=== PATIENT | female | born 1950 | race African-American/Black ===

== ENCOUNTER 2025-04-21 19:38 | Emergency (ER) | payer OTHER ==
[~2025-04-21] VITALS: Ht 162.6 cm; Wt 113.6 kg
[~2025-04-21 19:38] MED LIST: AMLO1TAB23; ATEN50TA80; BENA40TA71; GABA300C; LEVO125T; METF500T
--- NOTE | 2025-04-21 20:30 | ED.PDOC ---
History of Present Illness HPI Comments 75-year-old female with a history of hypertension, diabetes and COPD brought in by EMS for evaluation of elevated blood pressure. EMS reports they visited the patient twice today. The 1st time the patient had called for difficulty breathing. She states she has had difficulty coughing up mucus in her throat, causing her throat discomfort. At that time, EMS found the patient saturating 89% on room air, supplemental oxygen was administered, then the patient was able to clear the mucus and her oxygen saturation returned to normal on room air. Patient declined transport at that time. EMS again visited the patient for complaints of elevated blood pressure. Her blood pressure was found to be 202/104. Patient took her own clonidine, which improved her blood pressure to 164/86. On arrival to the ER now, the patient's blood pressure is 199/111, and she is complaining of a headache, nausea and generalized weakness. She denies any shortness of breath. She is still complaining of the mucus discomfort in her throat, but no sore throat, fever or difficulty swallowing. 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 Allergies: Coded Allergies: Iodine (Verified Allergy, Unknown, 01/31/11) Penicillins (Verified Allergy, Unknown, 01/31/11) Home Meds Reported Medications Atenolol (Tenormin) 50 Mg Tab, DAILY 01/31/11 Levothyroxine Sodium (Synthroid) 125 Mcg Tab 01/31/11 Metformin Hydrochloride (Glucophage) 500 Mg Tab 01/31/11 Benazepril Hcl (Benazepril Hcl) 40 Mg Tab, DAILY 01/31/11 Amlodipine Besylate (Amlodipine Besylate) 10 Mg Tab 01/31/11 Gabapentin (Neurontin) 300 Mg Cap, DAILY 01/31/11 Information Source: Patient Mode of Arrival: Ambulatory Severity: Moderate Timing: Hours Duration: Since onset Prehospital treatment: Accucheck, Oxygen Past Medical History PAST MEDICAL HISTORY: COPD, DM, HTN, Thyroid Surgical History: 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, 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 Family History Family History: Reviewed,noncontributory to illness Social History Smoker: Non-Smoker, Quit Greater Than 1 Year Alcohol: Occasionally Drugs: Denies Drug Use Lives In: Home Constitutional: denies: chills, diaphoresis, fatigue, fever, malaise, sweats, weakness, others EENTM: reports: blurred vision, throat pain; denies: double vision, ear bleeding, ear discharge, ear drainage, ear pain, ear ringing, eye pain, eye redness, hearing loss, mouth pain, mouth swelling, nasal discharge, nose bleeding, nose congestion, nose pain, photophobia, tearing, throat swelling, voice changes, others Respiratory: reports: cough, SOB at rest, shortness of breath; denies: hemoptysis, orthopnea, SOB with excertion, stridor, wheezing, others Cardiovascular: denies: chest pain, dizzy spells, diaphoresis, Dyspnea on exertion, edema, irregular heart beat, left arm pain, lightheadedness, palpitations, PND, syncope, others Gastrointestinal: denies: abdomen distended, abdominal pain, blood streaked bowels, constipated, diarrhea, dysphagia, difficulty swallowing, hematemesis, melena, nausea, poor appetite, poor fluid intake, rectal bleeding, rectal pain, vomiting, others Genitourinary: denies: abnormal vagina bleeding, burning, dyspareunia, dysuria, flank pain, frequency, hematuria, incontinence, pain, , vagina discharge, urgency, others Neurological: reports: dizziness, headache; denies: fainting, left sided numbness, left sided weakness, numbness, paresthesia, pre-existing deficit, right sided numbness, right sided weakness, seizure, speech problems, tingling, tremors, weakness, others Musculoskeletal: denies: back pain, gout, joint pain, joint swelling, muscle pain, muscle stiffness, neck pain, others Integumetry: denies: bruises, change in color, change in hair/nails, dryness, laceration, lesions, lumps, rash, wounds, others Allergic/Immunocompromised: denies: Difficulty Healing, Frequent Infections, Hives, Itching, others Hematologic/Lymphatic: denies: anemia, blood clots, easy bleeding, easy bruising, swollen glands, others Endocrine: denies: excessive hunger, excessive sweating, excessive thirst, excessive urination, flushing, intolerance to cold, intolerance to heat, unexplained weight gain, unexplained weight loss, others Psychiatric: denies: anxiety, bipolar disorder, depression, hopeless, panic disorder, schizophrenia, sleepless, suicidal, others Physical Exam General Appearance: No Apparent Distress, Obese HEENT: Other (Pupils and face symmetric. Moist mucous membranes.) Neck: Full Range of Motion, Normal Inspection Respiratory: Lungs Clear, No Accessory Muscle Use, No Respiratory Distress, Normal Breath Sounds Cardiovascular: No Edema, No JVD, Regular Rate/Rhythm Breast Exam: Deferred Gastrointestinal: Non Tender, Soft Genitalia: Deferred Pelvic: Deferred Rectal: Deferred Extremities: Normal inspection, Normal range of motion, Non-tender, No pedal edema Neurologic: Alert (Oriented x4), Normal Affect, Normal Mood, Other (Ambulatory) Cerebellar Function: NOT DONE Reflexes: NOT DONE Skin: Dry, Normal Color, Warm Lymphatic: NOT DONE Was a procedure done? Was a procedure done?: No Differential Dx Considerations may include: Hypertensive urgency/emergency, CHF, COPD exacerbation, pneumonia, among others X-Ray, Labs, Meds, VS Vital Signs Date Time Temp Pulse Resp B/P (MAP) Pulse Ox O2 Delivery O2 Flow Rate FiO2 04/21/25 22:42 98.2 92 17 159/68 (98) 96 98.2 04/21/25 20:00 97.6 114 16 199/111 (140) 100 97.6 Lab Test 04/21/25 22:56 04/21/25 20:53 04/21/25 20:03 Range/Units Troponin I High Sensitivity 29 33 </=34 ng/L White Blood Count 3.6 L 4.4-10.8 10^3/uL Red Blood Count 4.08 4.0-5.20 10^6/uL Hemoglobin 12.3 12.2-16.2 g/dL Hematocrit 36.6 36.0-46.0 % Mean Corpuscular Volume 89.9 80.0-100.0 fL Mean Corpuscular Hemoglobin 30.2 28.0-32.0 pg Mean Corpuscular Hemoglobin Concent 33.6 32.0-36.0 g/dL Red Cell Distribution Width 14.5 H 11.8-14.3 % Platelet Count 201 140-450 10^3/uL Mean Platelet Volume 7.8 6.9-10.8 fL Neutrophils (%) (Auto) 73.9 37.0-80.0 % Lymphocytes (%) (Auto) 15.5 10.0-50.0 % Monocytes (%) (Auto) 8.8 0.0-12.0 % Eosinophils (%) (Auto) 1.3 0.0-7.0 % Basophils (%) (Auto) 0.5 0.0-2.0 % Neutrophils # (Auto) 2.6 1.6-8.6 10 ^3/uL Lymphocytes # (Auto) 0.6 0.4-5.4 10 ^3/uL Monocytes # (Auto) 0.3 0-1.3 10 ^3/uL Eosinophils # (Auto) 0 0-0.8 10 ^3/uL Basophils # (Auto) 0 0-0.2 10 ^3/uL Nucleated Red Blood Cells 0.2 % Sodium Level 144 136-145 mmol/L Potassium Level 3.6 3.5-5.1 mmol/L Chloride Level 108 H 98-107 mmol/L Carbon Dioxide Level 25 20-31 mmol/L Anion Gap 11 5-15 Blood Urea Nitrogen 26 H 9-23 mg/dL Creatinine 0.86 0.550-1.02 mg/dL Glomerular Filtration Rate Calc 70 >90 mL/min BUN/Creatinine Ratio 30.2 H 10.0-20.0 Serum Glucose 143 H 74-106 mg/dL Calcium Level 9.9 8.7-10.4 mg/dL B-Type Natriuretic Peptide 82.39 0-100 pg/mL POC Glucose 141 H 70-106 mg/dl CHEST RADIOGRAPH Indication: sob Technique: Single frontal view of the chest was obtained COMPARISON: None FINDINGS: Lines and Tubes: None Lungs: Clear Pleura: No effusion. No pneumothorax. Cardiomediastinal contours: Cardiomegaly. Bones: Unremarkable IMPRESSION: 1. Cardiomegaly. X-Ray, Labs, Meds, VS Comment 75-year-old female with a history of hypertension, diabetes, COPD and thyroid disease brought in by EMS for evaluation of throat discomfort due to mucous, and elevated blood pressure Initial vitals remarkable for heart rate 114, blood pressure 199/111 . Oxygen saturation is 99-100% on room air Exam unremarkable Rhythm strip independently interpreted by me: Sinus rhythm, rate ninety-two, no ectopy. Chest x-ray: Cardiomegaly CBC remarkable for WBC 3.6, basic metabolic panel remarkable for chloride 108, BUN 26, glucose 143, 2 serial troponins negative, BNP normal Patient treated with the following in the ED: Guaifenesin 200 mg p.o., hydralazine 10 mg IV, decadron 10mg IV On re-evaluation, blood pressure is 159/68, patient is not in respiratory distress and saturating 97% on room air. She states she feels better and is comfortable being discharged home. Patient appears stable for discharge with close outpatient follow-up with her primary physician. Rx guaifenesin Time of 1ST Reevaluation: 20:22 Reevaluation 1ST: Unchanged Time of 2ND Reevaluation: 23:56 Reevaluation 2ND: Improved Patient Education/Counseling: Diagnosis, Treatment Family Education/Counseling: No Family Present SEPSIS Sepsis Screen Physician Orders Chest Portable (04/21/25 20:20) Urinalysis (04/21/25 20:20) Electrocardigram (04/21/25 20:20) Vital Signs Date Time Temp Pulse Resp B/P (MAP) Pulse Ox O2 Delivery O2 Flow Rate FiO2 04/21/25 22:42 98.2 92 17 159/68 (98) 96 98.2 04/21/25 20:00 97.6 114 16 199/111 (140) 100 97.6 Laboratory Tests Test 04/21/25 20:53 White Blood Count 3.6 10^3/uL (4.4-10.8) L Departure 1 Departure Time of Disposition: 23:45 Impression: Primary Impression: Accelerated hypertension Additional Impression: COPD exacerbation Disposition: 01 HOME / SELF CARE / HOMELESS Condition: Stable Additional Instructions: Your blood tests were unremarkable. Your chest x-ray was unremarkable. I have prescribed medication to help you cough up the mucus. Continue your current medications as prescribed. Follow-up with your primary doctor in 1-2 days. e-Prescriptions Guaifenesin (Mucinex) 600 Mg Tab 1 TAB PO BID PRN, #14 TAB Prov: ALEXY LOZANO MD 04/21/25 Discharged With: Relative Critical Care Note Critical Care Time?: No Stability Stability form required: No Heart Score Heart Score: Heart Score Response (Comments) Value History N/A 0 EKG N/A 0 Age N/A 0 Risk Factors N/A 0 Troponin N/A 0 Total 0 I personally scribed for ALEXY LOZANO MD ([email or web address]) on 04/21/25 at 20:30. Electronically submitted by Shady Felder ([facility]). I personally scribed for ALEXY LOZANO MD ([email or web address]) on 04/21/25 at 21:32. Electronically submitted by Shady Felder ([facility]). ALEXY LOZANO MD Apr 21, 2025 20:30
[2025-04-21 21:13] LABS: Hematocrit 36.6 % (36.0-46.0); Hemoglobin 12.3 g/dL (12.2-16.2); Mean Corpuscular Hemoglobin 30.2 pg (28.0-32.0); Mean Corpuscular Volume 89.9 fL (80.0-100.0); Nucleated Red Blood Cells % 0.2 %
--- NOTE | 2025-04-21 21:17 | DVH ---
CHEST RADIOGRAPH Indication: sob Technique: Single frontal view of the chest was obtained COMPARISON: None FINDINGS: Lines and Tubes: None Lungs: Clear Pleura: No effusion. No pneumothorax. Cardiomediastinal contours: Cardiomegaly. Bones: Unremarkable IMPRESSION: 1. Cardiomegaly.
[2025-04-21 21:19] LABS: Potassium 3.6 mmol/L (3.5-5.1); Sodium 144 mmol/L (136-145)
[2025-04-21 21:20] LABS: Anion Gap 11 (5-15); Calcium 9.9 mg/dL (8.7-10.4); Carbon Dioxide 25 mmol/L (20-31)
[2025-04-21 21:25] LABS: BUN/Creatinine Ratio 30.2 (10.0-20.0)
[2025-04-21 21:26] LABS: Blood Urea Nitrogen 26 mg/dL (9-23); Chloride 108 mmol/L (98-107); Glucose 143 mg/dL (74-106)
[2025-04-21] MEDS ORDERED: GUAI600T78 PO (23:58)
[2025-04-22] MEDS: hydrALAZINE HCL 20 MG/ML VL IV ONE (04:59)
[2025-04-22 05:00] VITALS: BP 165/93; PULSE 59; RESP 18; TEMP 98.8; O2SAT 97
== END 2025-04-22 05:00 | disposition home or self-care (01) ==
LOC: EDBD 19:38 → ER 19:38
DX: I10 Essential (primary) hypertension (principal); J44.1 Chronic obstructive pulmonary disease with (acute) exacerbation; E11.9 Type 2 diabetes mellitus without complications; Z79.899 Other long term (current) drug therapy; Z90.49 Acquired absence of other specified parts of digestive tract; Z98.890 Other specified postprocedural states; Z88.0 Allergy status to penicillin; Z88.8 Allergy status to other drugs, medicaments and biological substances
CPT/HCPCS: 36415; 71045; 80048; 82947; 83880; 84484; 85025; 96374; 99284; J1100; 82962

== ENCOUNTER 2025-05-12 08:06 | Emergency (ER) | payer OTHER ==
[~2025-05-12] VITALS: Ht 162.6 cm; Wt 111.7 kg
[~2025-05-12 08:06] MED LIST changes: +GUAI600T78 PO
--- NOTE | 2025-05-12 08:46 | ED.PDOC ---
SOB-HPI HPI Comments This is a 75 year old female presenting to the ED with chief complaint of SOB. Patient reports that she has been experiencing SOB with productive cough since 3am this morning. Patient relays that she has felt general malaise for the past 5 days. Patient noted to be 95% on RA. Patient denies any N/V, fever, chills, chest pain, or headache. 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 Family History Family History: Reviewed,noncontributory to illness Social History Smoker: Non-Smoker, Quit Greater Than 1 Year Alcohol: Occasionally Drugs: Denies Drug Use Lives In: Home Constitutional: reports: malaise; denies: chills, diaphoresis, fatigue, fever, sweats, weakness, others EENTM: denies: blurred vision, double vision, ear bleeding, ear discharge, ear drainage, ear pain, ear ringing, eye pain, eye redness, hearing loss, mouth pain, mouth swelling, nasal discharge, nose bleeding, nose congestion, nose pain, photophobia, tearing, throat pain, throat swelling, voice changes, others Respiratory: reports: cough, shortness of breath; denies: hemoptysis, orthopnea, SOB at rest, SOB with excertion, stridor, wheezing, others Cardiovascular: denies: chest pain, dizzy spells, diaphoresis, Dyspnea on exertion, edema, irregular heart beat, left arm pain, lightheadedness, palpitations, PND, syncope, others Gastrointestinal: denies: abdomen distended, abdominal pain, blood streaked bowels, constipated, diarrhea, dysphagia, difficulty swallowing, hematemesis, melena, nausea, poor appetite, poor fluid intake, rectal bleeding, rectal pain, vomiting, others Genitourinary: denies: abnormal vagina bleeding, burning, dyspareunia, dysuria, flank pain, frequency, hematuria, incontinence, pain, , vagina discharge, urgency, others Neurological: denies: dizziness, fainting, headache, left sided numbness, left sided weakness, numbness, paresthesia, pre-existing deficit, right sided numbness, right sided weakness, seizure, speech problems, tingling, tremors, weakness, others Musculoskeletal: denies: back pain, gout, joint pain, joint swelling, muscle pain, muscle stiffness, neck pain, others Integumetry: denies: bruises, change in color, change in hair/nails, dryness, laceration, lesions, lumps, rash, wounds, others Allergic/Immunocompromised: denies: Difficulty Healing, Frequent Infections, Hives, Itching, others Hematologic/Lymphatic: denies: anemia, blood clots, easy bleeding, easy bruising, swollen glands, others Endocrine: denies: excessive hunger, excessive sweating, excessive thirst, excessive urination, flushing, intolerance to cold, intolerance to heat, unexplained weight gain, unexplained weight loss, others Psychiatric: denies: anxiety, bipolar disorder, depression, hopeless, panic disorder, schizophrenia, sleepless, suicidal, others All Other Systems: Reviewed and Negative Physical Exam General Appearance: Moderate Distress, Normal HEENT: Normal ENT Inspection, Pharynx Normal, TMs Normal Neck: Full Range of Motion, Non-Tender, Normal, Normal Inspection Respiratory: Chest Non-Tender, Lungs Clear, No Accessory Muscle Use, No Respiratory Distress, Normal Breath Sounds Cardiovascular: No Edema, No JVD, No Murmur, No Gallop, Normal Peripheral Pulses, Regular Rate/Rhythm Breast Exam: Deferred Gastrointestinal: No Organomegaly, Non Tender, No Pulsatile Mass, Normal Bowel Sounds, Soft Genitalia: Deferred Pelvic: Deferred Rectal: Deferred Extremities: No calf tenderness, Normal capillary refill, Normal range of motion, Non-tender, Pedal edema Musculoskeletal : Apperance: Normal 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 Was a procedure done?: No Differential Dx Differential Diagnosis: Anxiety, Asthma, Bronchitis, CHF, COPD, Pneumonia, URI X-Ray, Labs, Meds, VS Vital Signs Date Time Temp Pulse Resp B/P (MAP) Pulse Ox O2 Delivery O2 Flow Rate FiO2 05/12/25 11:07 144/60 05/12/25 10:14 58 24 93 Room Air 05/12/25 10:14 98.2 58 24 144/60 (88) 93 98.2 05/12/25 08:25 62 05/12/25 08:07 98.4 67 20 184/87 95 98.4 Lab Test 05/12/25 08:47 Range/Units White Blood Count 3.0 L 4.4-10.8 10^3/uL Red Blood Count 4.04 4.0-5.20 10^6/uL Hemoglobin 12.2 12.2-16.2 g/dL Hematocrit 36.1 36.0-46.0 % Mean Corpuscular Volume 89.4 80.0-100.0 fL Mean Corpuscular Hemoglobin 30.3 28.0-32.0 pg Mean Corpuscular Hemoglobin Concent 33.9 32.0-36.0 g/dL Red Cell Distribution Width 14.3 11.8-14.3 % Platelet Count 190 140-450 10^3/uL Mean Platelet Volume 8.4 6.9-10.8 fL Neutrophils (%) (Auto) 63.2 37.0-80.0 % Lymphocytes (%) (Auto) 21.4 10.0-50.0 % Monocytes (%) (Auto) 11.8 0.0-12.0 % Eosinophils (%) (Auto) 3.0 0.0-7.0 % Basophils (%) (Auto) 0.6 0.0-2.0 % Neutrophils # (Auto) 1.9 1.6-8.6 10 ^3/uL Lymphocytes # (Auto) 0.6 0.4-5.4 10 ^3/uL Monocytes # (Auto) 0.4 0-1.3 10 ^3/uL Eosinophils # (Auto) 0.1 0-0.8 10 ^3/uL Basophils # (Auto) 0 0-0.2 10 ^3/uL Nucleated Red Blood Cells 0.0 % Sodium Level 140 136-145 mmol/L Potassium Level 3.7 3.5-5.1 mmol/L Chloride Level 101 98-107 mmol/L Carbon Dioxide Level 29 20-31 mmol/L Anion Gap 10 5-15 Blood Urea Nitrogen 18 9-23 mg/dL Creatinine 0.85 0.550-1.02 mg/dL Glomerular Filtration Rate Calc 71 >90 mL/min BUN/Creatinine Ratio 21.2 H 10.0-20.0 Serum Glucose 155 H 74-106 mg/dL Calcium Level 11.0 H 8.7-10.4 mg/dL Current Medications Medications (Trade) Dose Ordered Sig/Nancy Route Start Time Stop Time Status Last Admin Furosemide (Lasix Tablet) 10 mg ONCE ONCE PO 05/12/25 11:00 05/12/25 11:01 DC 05/12/25 11:07 Patient alert. Complaining of shortness a breath. No acute process. Vitals stable. Saturation above 95%. Possible CHF. Heart rate within normal limits. No increased respiratory rate. Was given Lasix. Chest x-ray reviewed does show CHF. Explained to the patient. Spoke with [facility] physician. Was told to follow up with her primary care physician. Was told to come back if there is any problem. Time of 1ST Reevaluation: 09:45 Reevaluation 1ST: Improved Patient Education/Counseling: Diagnosis, Treatment Family Education/Counseling: No Family Present SEPSIS Sepsis Screen Date sepsis recognized/suspect: May 12, 2025 Time Sepsis recognized/suspect: 806 Recent Procedure: No On Antibiotic Therapy: No Respiratory Rate >20: No Heart Rate >90: No Temp<36 C (96.8 F) or >38.3 C: No SBP <90 or MAP <65 mmHG: No New Acute Mental Status Change: No Is the patient on CPAP, BIPAP,: No Physician Orders Chest Portable (05/12/25 08:37) Urinalysis (05/12/25 08:37) Vital Signs Date Time Temp Pulse Resp B/P (MAP) Pulse Ox O2 Delivery O2 Flow Rate FiO2 05/12/25 11:07 144/60 05/12/25 10:14 58 24 93 Room Air 05/12/25 10:14 98.2 58 24 144/60 (88) 93 98.2 05/12/25 08:25 62 05/12/25 08:07 98.4 67 20 184/87 95 98.4 Laboratory Tests Test 05/12/25 08:47 White Blood Count 3.0 10^3/uL (4.4-10.8) L Medications Medications Dose Ordered Sig/Nancy Route Start Time Stop Time Status Last Admin Dose Admin Furosemide 10 mg ONCE ONCE PO 05/12/25 11:00 05/12/25 11:01 DC 05/12/25 11:07 Departure 1 Departure Time of Disposition: 10:50 Impression: Primary Impression: CHF (congestive heart failure) Qualified Codes: I50.43 - Acute on chronic combined systolic (congestive) and diastolic (congestive) heart failure Additional Impression: Pneumonitis Disposition: HOME / SELF CARE / HOMELESS Condition: Good e-Prescriptions Levofloxacin Hemihydrate (LEVOFLOXACIN) 500 Mg Tab 1 TAB PO DAILY for 7 Days, #7 TAB Prov: TOMMY WU MD 05/12/25 Discharged With: Self Critical Care Note Critical Care Time?: No Stability Stability form required: No Heart Score Heart Score: Heart Score Response (Comments) Value History Moderate Suspicious 1 EKG Normal 0 Age >65 2 Risk Factors >3 or Hx ASHD 2 Troponin N/A 0 Total 5 I personally scribed for TOMMY WU MD ([email or web address]) on 05/12/25 at 08:46. Electronically submitted by Hussein Chan ([email or web address]). TOMMY WU MD May 12, 2025 08:46
[2025-05-12 09:07] LABS: Hematocrit 36.1 % (36.0-46.0); Hemoglobin 12.2 g/dL (12.2-16.2); Mean Corpuscular Hemoglobin 30.3 pg (28.0-32.0); Mean Corpuscular Volume 89.4 fL (80.0-100.0); Nucleated Red Blood Cells % 0.0 %
[2025-05-12 09:20] LABS: Chloride 101 mmol/L (98-107); Potassium 3.7 mmol/L (3.5-5.1); Sodium 140 mmol/L (136-145)
[2025-05-12 09:21] LABS: Anion Gap 10 (5-15); Calcium 11.0 mg/dL (8.7-10.4); Carbon Dioxide 29 mmol/L (20-31)
[2025-05-12 09:26] LABS: BUN/Creatinine Ratio 21.2 (10.0-20.0); Blood Urea Nitrogen 18 mg/dL (9-23)
[2025-05-12 09:28] LABS: Glucose 155 mg/dL (74-106)
--- NOTE | 2025-05-12 09:35 | DVH ---
INDICATION: sob TECHNIQUE: Frontal view of the chest. COMPARISON: XY CHEST PORTABLE on DOS: 04/21/25 FINDINGS: Cardiomegaly. The heart and mediastinal contours are grossly unremarkable. There is no evidence of p leural disease. The lungs are clear. The bony structures of the chest are intact without fracture. IMPRESSION: 1. Cardiomegaly with mild CHF
[2025-05-12 10:14] VITALS: BP 144/60; PULSE 58; RESP 24; TEMP 98.2; O2SAT 93
[2025-05-12] MEDS: FUROSEMIDE 20 MG TAB PO ONE (11:07)
--- NOTE | 2025-05-12 11:30 | DVHDS2 ---
New Physician D'charge PN Admitting Diagnosis Admitting Diagnosis sob Discharge Diagnosis copd mild chf Operations or Procedures none Reason(s) For Hospitalization Surgery Hospital Course 75 F who comes to ER with SOB over last few days. She has a hx of COPD. When she arrived her o2 sats were >95 on room air and her vitals signs were stable with no tachycardia or fever. She denied n/v, fever or chills. Her labs showed WBC 3k and chemistry panel was nml. Her CXR was read as mild CHF however the patient had no peripheral edema and as mentioned sats were >95% on room air. SHe was given small dose of 10 mg PO Lasix x1 and will be discharged home with levaquin 500 mg po qd x 7 days for possible URI and will have outpt PCP and cardio follow up via [facility]. Discussed with ER provider and all parties in agreement with plan. Herita to arrange for all outpt follow up and patient to be dc home from ER. Treatment Plan Discharge Condition of Discharge Good Disposition Home Discharge Instructions Diet: Cardiac 2g Na,low cholest Activity: No Restrictions, As Tolerated Medications: see med sheet Follow Up Care Follow Up/Referral: pcp cardio Discharge Statement: "Patient was advised to return to the ER or call 911 if any headaches, dizziness, shortness of breath, chest pain, abdominal pain, bleeding, fevers, or worsening of medical condition. Patient was counseled about treatment plan, medications, possible side effects, patientverbalized understanding. All questions were answered to the best of my ability. This discharge took greater then 30 minutes in planning, reviewing documentation, counseling the patient, and discussing with other team members." BELINDA ZAPATA MD May 12, 2025 11:30
[2025-05-12] MEDS ORDERED: LEVO500T91 PO (11:58)
== END 2025-05-12 12:19 | disposition home or self-care (01) ==
LOC: ER 08:06
DX: I11.0 Hypertensive heart disease with heart failure (principal); I50.9 Heart failure, unspecified; J98.4 Other disorders of lung; F10.90 Alcohol use, unspecified, uncomplicated; Y90.9 Presence of alcohol in blood, level not specified; E11.9 Type 2 diabetes mellitus without complications; J44.9 Chronic obstructive pulmonary disease, unspecified; Z79.899 Other long term (current) drug therapy; Z90.49 Acquired absence of other specified parts of digestive tract; Z98.890 Other specified postprocedural states
CPT/HCPCS: 36415; 71045; 80048; 85025

== ENCOUNTER 2025-05-12 14:16 | Emergency (ER) | payer OTHER ==
[~2025-05-12] VITALS: Ht 162.6 cm; Wt 111.7 kg
[~2025-05-12 14:16] MED LIST changes: +LEVO500T91 PO
--- NOTE | 2025-05-12 14:46 | ED.PDOC ---
HPI Comments This is a 75 year old female presenting to the ED with chief complaint of hypertension. Patient reports that despite being discharged from the ED earlier today, her blood pressure has continued to be elevated with a systolic in the 200s. Patient denies any confusion, chest pain, SOB, dizziness, N/V/D, fever, or chills. Chief Complaint: High Blood Pressure Time Seen by MD: 14:46 Primary Care Provider: NONE Reviewed Notes: Nurses Notes, Medications, Allergies Allergies: Coded Allergies: Iodine (Verified Allergy, Unknown, 01/31/11) Penicillins (Verified Allergy, Unknown, 01/31/11) Home Meds Active Scripts Levofloxacin Hemihydrate (LEVOFLOXACIN) 500 Mg Tab, 1 TAB PO DAILY for 7 Days, #7 TAB Prov:TOMMY WU MD 05/12/25 Guaifenesin (Mucinex) 600 Mg Tab, 1 TAB PO BID PRN, #14 TAB Prov:ALEXY LOZANO MD 04/21/25 Reported Medications Atenolol (Tenormin) 50 Mg Tab, DAILY 01/31/11 Levothyroxine Sodium (Synthroid) 125 Mcg Tab 01/31/11 Metformin Hydrochloride (Glucophage) 500 Mg Tab 01/31/11 Benazepril Hcl (Benazepril Hcl) 40 Mg Tab, DAILY 01/31/11 Amlodipine Besylate (Amlodipine Besylate) 10 Mg Tab 01/31/11 Gabapentin (Neurontin) 300 Mg Cap, DAILY 01/31/11 Information Source: Patient Mode of Arrival: Wheelchair Severity: Moderate Timing: Hours Duration: Since onset Prehospital treatment: None Cardiac Risk Factors: HTN, Diabetes PE Risk Factors: None Past Medical History PAST MEDICAL HISTORY: COPD, DM, HTN, Thyroid Surgical History: 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, 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 Family History Family History: Reviewed,noncontributory to illness Social History Smoker: Non-Smoker, Quit Greater Than 1 Year Alcohol: Occasionally Drugs: Denies Drug Use Lives In: Home Constitutional: denies: chills, diaphoresis, fatigue, fever, malaise, sweats, weakness, others EENTM: denies: blurred vision, double vision, ear bleeding, ear discharge, ear drainage, ear pain, ear ringing, eye pain, eye redness, hearing loss, mouth pain, mouth swelling, nasal discharge, nose bleeding, nose congestion, nose pain, photophobia, tearing, throat pain, throat swelling, voice changes, others Respiratory: denies: cough, hemoptysis, orthopnea, SOB at rest, shortness of breath, SOB with excertion, stridor, wheezing, others Cardiovascular: denies: chest pain, dizzy spells, diaphoresis, Dyspnea on exertion, edema, irregular heart beat, left arm pain, lightheadedness, palpitat ions, PND, syncope, others Gastrointestinal: denies: abdomen distended, abdominal pain, blood streaked bow els, constipated, diarrhea, dysphagia, difficulty swallowing, hematemesis, melena, nausea, poor appetite, poor fluid intake, rectal bleeding, rectal pain, vomiting, others Genitourinary: denies: abnormal vagina bleeding, burning, dyspareunia, dysuria, flank pain, frequency, hematuria, incontinence, pain, , vagina discharge, urgency, others Neurological: denies: dizziness, fainting, headache, left sided numbness, left sided weakness, numbness, paresthesia, pre-existing deficit, right sided numbness, right sided weakness, seizure, speech problems, tingling, tremors, weakness, others Musculoskeletal: denies: back pain, gout, joint pain, joint swelling, muscle pain, muscle stiffness, neck pain, others Integumetry: denies: bruises, change in color, change in hair/nails, dryness, laceration, lesions, lumps, rash, wounds, others Allergic/Immunocompromised: denies: Difficulty Healing, Frequent Infections, Hives, Itching, others Hematologic/Lymphatic: denies: anemia, blood clots, easy bleeding, easy bruisi ng, swollen glands, others Endocrine: denies: excessive hunger, excessive sweating, excessive thirst, exce ssive urination, flushing, intolerance to cold, intolerance to heat, unexplained weight gain, unexplained weight loss, others Psychiatric: denies: anxiety, bipolar disorder, depression, hopeless, panic disorder, schizophrenia, sleepless, suicidal, others All Other Systems: Reviewed and Negative Physical Exam General Appearance: Moderate Distress, Normal HEENT: Normal ENT Inspection, Pharynx Normal, TMs Normal Neck: Full Range of Motion, Non-Tender, Normal, Normal Inspection Respiratory: Chest Non-Tender, Lungs Clear, No Accessory Muscle Use, No Respiratory Distress, Normal Breath Sounds Cardiovascular: No Edema, No JVD, No Murmur, No Gallop, Normal Peripheral Pulses, Regular Rate/Rhythm Breast Exam: Deferred Gastrointestinal: No Organomegaly, Non Tender, No Pulsatile Mass, Normal Bowel Sounds, Soft Genitalia: Deferred Pelvic: Deferred Rectal: Deferred Extremities: No calf tenderness, Normal capillary refill, Normal inspection, Normal range of motion, Non-tender, No pedal edema Musculoskeletal : Apperance: Normal Neurologic: Alert, chip mucker II-XII nml as Tested, No Motor Deficits, Normal Affect, Normal Mood, No Sensory Deficits Cerebellar Function: Normal Reflexes: Normal Skin: Dry, Normal Color, Warm Peripheral Pulses: 3+ Radial (R), 3+ Radial (L) Lymphatic: No Adenopathy Was a procedure done? Was a procedure done?: No CP Differential Dx Differential Diagnosis: A-fib, A-Flutter, Angina, Anxiety / Panic Attack, Atrial Dysrhythmia, Electrolyte Disorder X-Ray, Labs, Meds, VS Vital Signs Date Time Temp Pulse Resp B/P (MAP) Pulse Ox O2 Delivery O2 Flow Rate FiO2 05/12/25 16:40 235/103 05/12/25 16:30 72 16 235/103 (147) 97 05/12/25 16:30 72 16 97 Room Air* 0 21 05/12/25 14:21 98.0 71 17 233/93 95 98.0 Current Medications Medications (Trade) Dose Ordered Sig/Nancy Route Start Time Stop Time Status Last Admin Amlodipine Besylate (Norvasc Tablet) 10 mg ONCE ONCE PO 05/12/25 14:45 05/12/25 14:46 DC 05/12/25 16:40 Patient alert. Came in because of abdominal discomfort. Just left the hospital few hours ago. Vitals stable. Blood pressure slightly elevated. Norvasc. Abdomen is soft nontender. CT scan was done few hours ago did not show any acute process other than old changes. Explained to the patient. Continue monitoring. Time of 1ST Reevaluation: 15:45 Reevaluation 1ST: Improved Patient Education/Counseling: Diagnosis, Treatment Family Education/Counseling: No Family Present SEPSIS Sepsis Screen Date sepsis recognized/suspect: May 12, 2025 Time Sepsis recognized/suspect: 142 Recent Procedure: No On Antibiotic Therapy: No Respiratory Rate >20: No Heart Rate >90: No Temp<36 C (96.8 F) or >38.3 C: No SBP <90 or MAP <65 mmHG: No New Acute Mental Status Change: No Is the patient on CPAP, BIPAP,: No Vital Signs Date Time Temp Pulse Resp B/P (MAP) Pulse Ox O2 Delivery O2 Flow Rate FiO2 05/12/25 16:40 235/103 05/12/25 16:30 72 16 235/103 (147) 97 05/12/25 16:30 72 16 97 Room Air* 0 21 05/12/25 14:21 98.0 71 17 233/93 95 98.0 Medications Medications Dose Ordered Sig/Nancy Route Start Time Stop Time Status Last Admin Dose Admin Amlodipine Besylate 10 mg ONCE ONCE PO 05/12/25 14:45 05/12/25 14:46 DC 05/12/25 16:40 Departure 1 Departure Time of Disposition: 17:51 Impression: Primary Impression: Hypertensive urgency Disposition: 07 LEFT AWOL/ELOPED Condition: Good Discharged With: Self Critical Care Note Critical Care Time?: No Stability Stability form required: No Heart Score Heart Score: Heart Score Response (Comments) Value History Moderate Suspicious 1 EKG Normal 0 Age >65 2 Risk Factors >3 or Hx ASHD 2 Troponin N/A 0 Total 5 I personally scribed for TOMMY WU MD ([email or web address]) on 05/12/25 at 14:46. Electronically submitted by Hussein Chan ([email or web address]). TOMMY WU MD May 12, 2025 14:46
[2025-05-12 16:30] VITALS: PULSE 72; RESP 16; O2SAT 97
[2025-05-12 18:36] VITALS: PULSE 72; RESP 16; RESP 18; O2SAT 94; O2SAT 97
[2025-05-12 19:30] VITALS: PULSE 67; RESP 20; O2SAT 97
[2025-05-12] MEDS: hydrALAZINE HCL 20 MG/ML VL IV ONE (19:59)
[2025-05-13 07:59] VITALS: BP 189/83; PULSE 79; RESP 12; TEMP 98; O2SAT 95
== END 2025-05-13 08:10 | disposition home or self-care (01) ==
LOC: ER 14:16
DX: I16.0 Hypertensive urgency (principal); E11.9 Type 2 diabetes mellitus without complications; J44.9 Chronic obstructive pulmonary disease, unspecified; Z79.899 Other long term (current) drug therapy; Z90.49 Acquired absence of other specified parts of digestive tract; Z98.890 Other specified postprocedural states; Z88.0 Allergy status to penicillin; Z88.8 Allergy status to other drugs, medicaments and biological substances
CPT/HCPCS: 96374; 99285; J0360

== ENCOUNTER 2025-05-15 23:54 | Inpatient (IN) | payer OTHER ==
[~2025-05-15] VITALS: Ht 165.1 cm; Wt 104.5 kg
--- NOTE | 2025-05-16 01:25 | DVH ---
Exam: CT CT AB PEL WO CON-NO ORAL OR IV History: Abdominal pain, No BM x 6 days Comparison Study: None Technique: Multidetector spiral CT of the abdomen was performed from lung bases to pubic symphysis. I maging was performed without IV contrast. Axial, coronal and sagittal multiplanar reformats were obta ined from the axial data set by the technologist. Radiation Dose : 1. Abdomen/Pelvis: CTDIvol 19.01 mGy, DLP 990.07 mGy*cm. Findings: Evaluation of solid organs is limited due to lack of intravenous contrast use. Lung Bases: Mild cardiomegaly and small pericardial effusion. Multivessel coronary atherosclerosis. No acute finding of the lung bases, with mild tzirn-mqhmhfe-mesy-left scarring/atelectasis. Liver: Unremarkable. Gallbladder and Biliary Tree: Unremarkable Pancreas: Mild atrophy. Spleen: Unremarkable Adrenal Glands: Bilateral thickening with suspected small lipid rich left adrenal adenoma. Kidneys/Ureters: No urinary stone or obstruction. Bladder: Contracted without evident abnormality. Pelvic Organs: Uterine calcifications consistent with involuted fibroids. Bowel: No wall thickening or obstruction. No significant stool burden. No evidence of appendicitis. Vasculature: Mild atherosclerosis. Lymphadenopathy: No obvious adenopathy. Peritoneum: Trace ascites adjacent to the cecum. No free air or fluid collection. Abdominal Wall: Umbilical rectus diastasis. Musculoskeletal: No acute osseous finding. Degenerative changes of the spine and pelvis. IMPRESSION: 1. No evidence of bowel obstruction or significant stool burden. 2. Small volume right lower quadrant ascites of indeterminate origin. 3. Cardiomegaly with small pericardial effusion. Radiation optimization: All CT scans at this facility use at least one of these dose optimization anu hniques: automated exposure control mA and/or kV adjustment per patient size (includes targeted exam s where dose is matched to clinical indication) or iterative reconstruction.
[2025-05-16 01:26] LABS: Hematocrit 41.5 % (36.0-46.0); Hemoglobin 14.0 g/dL (12.2-16.2); Mean Corpuscular Hemoglobin 31.0 pg (28.0-32.0); Mean Corpuscular Volume 91.6 fL (80.0-100.0); Nucleated Red Blood Cells % 0.1 %
[2025-05-16 01:36] LABS: Chloride 105 mmol/L (98-107); Sodium 144 mmol/L (136-145)
[2025-05-16 01:37] LABS: Anion Gap 12 (5-15); Calcium 9.7 mg/dL (8.7-10.4); Carbon Dioxide 27 mmol/L (20-31)
[2025-05-16 01:40] LABS: Potassium 3.3 mmol/L (3.5-5.1)
[2025-05-16 01:42] LABS: BUN/Creatinine Ratio 16.1 (10.0-20.0)
[2025-05-16 01:46] LABS: Blood Urea Nitrogen 23 mg/dL (9-23); Glucose 146 mg/dL (74-106)
--- NOTE | 2025-05-16 02:44 | ED.PDOC ---
History of Present Illness HPI Comments 75-year-old female who is brought in by son for chief complaint of constipation, nausea, abdominal pain, shortness of breath, and congestion. One-week endorsement of symptoms. 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 Cyanosis or reports on pat ient becoming confused and declining inability to care for herself. Denies any chest pain, vomiting, or further associated symptoms. REVIEW OF SYSTEMS: General: Congestion, No fever, no chills, HEENT: No neck pain, no blurred vision Cardiac: No chest pain. No palpitations. Lungs: Shortness of breath GI: Abdominal pain, nausea, constipation, no vomiting Musculoskeletal: No joint pain , no back pain Skin: No rash, no wound Neuro: No headache, no dizziness, no syncope PHYSICAL EXAM: General: Awake, alert and oriented. No acute distress. Skin: Skin in warm, dry and intact without rashes or lesions. HEENT: The head is normocephalic and atraumatic. Conjunctivae are clear without exudates or hemorrhage. Sclera is non-icteric. Neck: Normal range of motion. No JVD. Cardiac: Regular rate Respiratory: No signs of respiratory distress. No Stridor. No rales or wheezing on exam. Extremities: Non Pitting B/L pedal edema. No pitting edema. Neurological: The patient is awake, alert and oriented to person, place, and time with normal speech. Speech is clear. There is no facial asymmetry. Psychiatric: Appropriate mood and affect. Good judgement and insight. Chief Complaint: Abdominal Pain Time Seen by MD: 00:29 Primary Care Provider: NONE Reviewed Notes: Nurses Notes, Medications, Allergies Allergies: Coded Allergies: Iodine (Verified Allergy, Unknown, 01/31/11) Penicillins (Verified Allergy, Unknown, 01/31/11) Home Meds Active Scripts Lactulose (Lactulose) 10 Gm/15 Ml Laura, 10 GM PO BID PRN for 30 Days, #120 ML Prov:BELINDA ZAPATA MD 05/16/25 Levofloxacin Hemihydrate (LEVAQUIN 500 MG) 500 Mg Tab, 1 TAB PO DAILY, #7 TAB Prov:BELINDA ZAPATA MD 05/16/25 Levofloxacin Hemihydrate (LEVOFLOXACIN) 500 Mg Tab, 1 TAB PO DAILY for 7 Days, #7 TAB Prov:BRYCE,TOMMY MD 05/12/25 Guaifenesin (Mucinex) 600 Mg Tab, 1 TAB PO BID PRN, #14 TAB Prov:ALEXY LOZANO MD 04/21/25 Reported Medications Atenolol (Tenormin) 50 Mg Tab, DAILY 01/31/11 Levothyroxine Sodium (Synthroid) 125 Mcg Tab 01/31/11 Metformin Hydrochloride (Glucophage) 500 Mg Tab 01/31/11 Benazepril Hcl (Benazepril Hcl) 40 Mg Tab, DAILY 01/31/11 Amlodipine Besylate (Amlodipine Besylate) 10 Mg Tab 01/31/11 Gabapentin (Neurontin) 300 Mg Cap, DAILY 01/31/11 Information Source: Patient, Relative (Child) Mode of Arrival: Wheelchair Severity: Moderate Timing: Days Duration: Since onset Prehospital treatment: None Past Medical History PAST MEDICAL HISTORY: COPD, DM, HTN, Thyroid (Hypothyroidism) Surgical History: 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, 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 Was a procedure done?: No Differential Dx Considerations may include: Differential diagnoses considered include: Abdominal aortic aneurysm, WI, esophageal rupture, intestinal obstruction, mesenteric ischemia, perforated viscus or solid organ rupture, CHF with hepatomegaly, pneumonia, abscess, appendicitis, biliary disease, diverticulitis, gastritis, gastroenteritis, hepatitis, hernia, inflammatory bowel disease, pancreatitis, peptic ulcer disease, urinary tract infection, ureteral colic, constipation, GERD, irritable syndrome, abdominal wall pain, nonspecific abdominal pain, herpes zoster, nephrolithiasis. X-Ray, Labs, Meds, VS Vital Signs Date Time Temp Pulse Resp B/P (MAP) Pulse Ox O2 Delivery O2 Flow Rate FiO2 05/16/25 00:27 87 05/16/25 00:06 98.3 90 18 167/88 95 98.3 Lab Test 05/16/25 01:08 Range/Units White Blood Count 3.9 #L 4.4-10.8 10^3/uL Red Blood Count 4.53 4.0-5.20 10^6/uL Hemoglobin 14.0 12.2-16.2 g/dL Hematocrit 41.5 # 36.0-46.0 % Mean Corpuscular Volume 91.6 80.0-100.0 fL Mean Corpuscular Hemoglobin 31.0 28.0-32.0 pg Mean Corpuscular Hemoglobin Concent 33.8 32.0-36.0 g/dL Red Cell Distribution Width 14.3 11.8-14.3 % Platelet Count 196 140-450 10^3/uL Mean Platelet Volume 8.3 6.9-10.8 fL Neutrophils (%) (Auto) 66.3 37.0-80.0 % Lymphocytes (%) (Auto) 18.3 10.0-50.0 % Monocytes (%) (Auto) 13.7 H 0.0-12.0 % Eosinophils (%) (Auto) 1.0 0.0-7.0 % Basophils (%) (Auto) 0.7 0.0-2.0 % Neutrophils # (Auto) 2.6 1.6-8.6 10 ^3/uL Lymphocytes # (Auto) 0.7 0.4-5.4 10 ^3/uL Monocytes # (Auto) 0.5 0-1.3 10 ^3/uL Eosinophils # (Auto) 0 0-0.8 10 ^3/uL Basophils # (Auto) 0 0-0.2 10 ^3/uL Nucleated Red Blood Cells 0.1 % Sodium Level 144 136-145 mmol/L Potassium Level 3.3 L 3.5-5.1 mmol/L Chloride Level 105 98-107 mmol/L Carbon Dioxide Level 27 20-31 mmol/L Anion Gap 12 5-15 Blood Urea Nitrogen 23 9-23 mg/dL Creatinine 1.43 #H 0.550-1.02 mg/dL Glomerular Filtration Rate Calc 38 >90 mL/min BUN/Creatinine Ratio 16.1 10.0-20.0 Serum Glucose 146 H 74-106 mg/dL Calcium Level 9.7 8.7-10.4 mg/dL [address] [address] Ph: [phone] DIAGNOSTIC IMAGING Diagnostic Imaging Report : [id number] Signed PATIENT: JEY COX ACCT: [id number] UNIT: [id number] : 1950 LOC: ER ROOM / BED: / AGE / SEX: 75 / F ADM STATUS: REG ER SERVICE 0030 ORDERING PHYSICIAN: SHANTAL COOPER MD PROCEDURE(s): ABPL - CT AB PEL WO CON-NO ORAL OR IV REASON: Abdominal pain, No BM x 6 days ORDER NUMBER(s): [id number], ACCESSION NUMBER(s): [id number] Exam: CT CT AB PEL WO CON-NO ORAL OR IV History: Abdominal pain, No BM x 6 days Comparison Study: None Technique: Multidetector spiral CT of the abdomen was performed from lung bases to pubic symphysis. Imaging was performed without IV contrast. Axial, coronal and sagittal multiplanar reformats were obtained from the axial data set by the technologist. Radiation Dose : 1. Abdomen/Pelvis: CTDIvol 19.01 mGy, DLP 990.07 mGy*cm. Findings: Evaluation of solid organs is limited due to lack of intravenous contrast use. Lung Bases: Mild cardiomegaly and small pericardial effusion. Multivessel coronary atherosclerosis. No acute finding of the lung bases, with mild qsene-zmvqxgk-wiva-left scarring/atelectasis. Liver: Unremarkable. Gallbladder and Biliary Tree: Unremarkable Pancreas: Mild atrophy. Spleen: Unremarkable Adrenal Glands: Bilateral thickening with suspected small lipid rich left adrenal adenoma. Kidneys/Ureters: No urinary stone or obstruction. Bladder: Contracted without evident abnormality. Pelvic Organs: Uterine calcifications consistent with involuted fibroids. Bowel: No wall thickening or obstruction. No significant stool burden. No evidence of appendicitis. Vasculature: Mild atherosclerosis. Lymphadenopathy: No obvious adenopathy. Peritoneum: Trace ascites adjacent to the cecum. No free air or fluid collection. Abdominal Wall: Umbilical rectus diastasis. Musculoskeletal: No acute osseous finding. Degenerative changes of the spine and pelvis. IMPRESSION: 1. No evidence of bowel obstruction or significant stool burden. 2. Small volume right lower quadrant ascites of indeterminate origin. 3. Cardiomegaly with small pericardial effusion. Radiation optimization: All CT scans at this facility use at least one of these dose optimization techniques: automated exposure control mA and/or kV adjustment per patient size (includes targeted exams where dose is matched to clinical indication) or iterative reconstruction. ATED BY: GUILLERMINA FERRARO MD DICTATED DATE/TIME: 05/16/25122 SIGNED BY: GUILLERMINA FERRARO MD SIGNED DATE/TIME: 05/16/25122 CC: Time of 1ST Reevaluation: 00:59 Reevaluation 1ST: Unchanged Patient Education/Counseling: Other (Need for admission) Family Education/Counseling: Other (Need for admission) SEPSIS Sepsis Screen Date sepsis recognized/suspect: May 16, 2025 Time Sepsis recognized/suspect: 14 Recent Procedure: No On Antibiotic Therapy: No Respiratory Rate >20: No Heart Rate >90: Yes Temp<36 C (96.8 F) or >38.3 C: No SBP <90 or MAP <65 mmHG: No New Acute Mental Status Change: No Is the patient on CPAP, BIPAP,: No Physician Orders Ct Ab Pel Wo Con-No Oral Or Iv (05/16/25 00:30) Vital Signs Date Time Temp Pulse Resp B/P (MAP) Pulse Ox O2 Delivery O2 Flow Rate FiO2 05/16/25 00:27 87 05/16/25 00:06 98.3 90 18 167/88 95 98.3 Laboratory Tests Test 05/16/25 01:08 White Blood Count 3.9 10^3/uL (4.4-10.8) #L Departure 1 Departure Time of Disposition: 02:46 Impression: Primary Impression: TERESA (acute kidney injury) Additional Impressions: Constipation Abdominal pain Disposition: ADMITTED INPATIENT Condition: Stable e-Prescriptions Lactulose (Lactulose) 10 Gm/15 Ml Laura 10 GM PO BID PRN for 30 Days, #120 ML Prov: BELINDA ZAPATA MD 05/16/25 Levofloxacin Hemihydrate (LEVAQUIN 500 MG) 500 Mg Tab 1 TAB PO DAILY, #7 TAB Prov: BELINDA ZAPATA MD 05/16/25 Comments MDM: 75-year-old female with a TERESA, constipation, abdominal pain Discussed with Dr. Mclaughlin who accepts patient for admission Extensive evaluation was performed in attempt to identify or rule out: (See differential diagnosis section) The following tests were ordered, and results were reviewed by me and discussed with patient: (See diagnostic results section) The following test were independently interpreted by me: N/A I reviewed and agreed with the following test results read by other providers: CT abdomen and pelvis without contrast I reviewed the following notes from the pt's past medical encounters: May 12, 2025 encounter for hypertensive urgency Additional information was gathered from interviewing the following independent historians: Son Decision regarding hospitalization or escalation of hospital level of care: Risk and benefits of admission for further treatment of patient's condition was considered. Due to patient's current clinical condition, high risk of decline and poor outcome if discharged and need for further inpatient management and mon itoring, patient will be admitted to the hospital. Critical Care Note Critical Care Time?: No Stability Stability form required: No Heart Score Heart Score: Heart Score Response (Comments) Value History N/A 0 EKG N/A 0 Age N/A 0 Risk Factors N/A 0 Troponin N/A 0 Total 0 I personally scribed for SHANTAL COOPER MD ([email or web address]) on 05/16/25 at 02:44. Electronically submitted by Javier Giordano ([email or web address]). I personally scribed for SHANTAL COOPER MD ([email or web address]) on 05/16/25 at 04:12. Electronically submitted by Javier Giordano ([email or web address]). SHANTAL COOPER MD May 16, 2025 02:44
[2025-05-16] MEDS ORDERED: MORPHINE SULFATE INJ 2 MG/ml SYRG IV PRN (06:15)
[2025-05-16] MEDS ORDERED: NITROGLYCERIN 0.4 MG SL TAB SL PRN (06:15)
[2025-05-16] MEDS ORDERED: hydrALAZINE HCL 20 MG/ML VL IV PRN (06:15)
[2025-05-16] MEDS ORDERED: LEVO500T91 PO (07:30)
[2025-05-16] MEDS ORDERED: LACT10SO3 PO (07:30)
--- NOTE | 2025-05-16 07:33 | DVHDS2 ---
New Physician D'charge PN Admitting Diagnosis Admitting Diagnosis sob/abd pain Discharge Diagnosis abd pain, nos Operations or Procedures none Reason(s) For Hospitalization Surgery Hospital Course 75 F who comes to ER c/o SOB and abd pain. She had a wbc of 3.9 and cr 1.4 likely close to her baseline. She was admitted to the hospital and underwent CT abdomen and it revealed small pericardial effusion otherwise NO acute abnormalities. Her vital signs are all nml and she is on room air. She will be discharged home with outpt PCP follow up along with a course of levquin x 7 days for possible URI. [facility] to arrange for all outpt follow up. Treatment Plan Discharge Condition of Discharge Good Disposition Home Discharge Instructions Diet: Cardiac 2g Na,low cholest Activity: No Restrictions, As Tolerated Medications: see med sheet Follow Up Care Follow Up/Referral: pcp cardio Discharge Statement: "Patient was advised to return to the ER or call 911 if any headaches, dizziness, shortness of breath, chest pain, abdominal pain, bleeding, fevers, or worsening of medical condition. Patient was counseled about treatment plan, medications, possible side effects, patientverbalized understanding. All questions were answered to the best of my ability. This discharge took greater then 30 minutes in planning, reviewing documentation, counseling the patient, and discussing with other team members." BELINDA ZAPATA MD May 16, 2025 07:33
[2025-05-16] MEDS: SODIUM CHLORIDE 0.9% 500 ML IV ONE (08:31)
[2025-05-16] MEDS: LACTULOSE 20Gm/30ML SOLN PO SCH (08:49)
[2025-05-16] MEDS: FUROSEMIDE 40 MG/4 ML VIAL IV SCH (08:50)
--- NOTE | 2025-05-16 08:59 | DVHHP2 ---
Admitting Diagnosis: TERESA, Pericardial effusion, abdominal pain due to constipation History of Present Illness HPI 75 y.o. female with COPD, HTN, DM, COPD arrived to the ER c/o one week of nausea, abdominal pain, constipation, shortness of breath. Labs showed elevated Cr today compared to the previous normal value [address] showed small pericardial effusion. Home Meds Active Scripts Lactulose (Lactulose) 10 Gm/15 Ml Laura, 10 GM PO BID PRN for 30 Days, #120 ML Prov:BELINDA ZAPATA MD 05/16/25 Levofloxacin Hemihydrate (LEVAQUIN 500 MG) 500 Mg Tab, 1 TAB PO DAILY, #7 TAB Prov:BELINDA ZAPATA MD 05/16/25 Levofloxacin Hemihydrate (LEVOFLOXACIN) 500 Mg Tab, 1 TAB PO DAILY for 7 Days, #7 TAB Prov:TOMMY WU MD 05/12/25 Guaifenesin (Mucinex) 600 Mg Tab, 1 TAB PO BID PRN, #14 TAB Prov:ALEXY LOZANO MD 04/21/25 Reported Medications Atenolol (Tenormin) 50 Mg Tab, DAILY 01/31/11 Levothyroxine Sodium (Synthroid) 125 Mcg Tab 01/31/11 Metformin Hydrochloride (Glucophage) 500 Mg Tab 01/31/11 Benazepril Hcl (Benazepril Hcl) 40 Mg Tab, DAILY 01/31/11 Amlodipine Besylate (Amlodipine Besylate) 10 Mg Tab 01/31/11 Gabapentin (Neurontin) 300 Mg Cap, DAILY 01/31/11 Past Medical History Cardiac: HTN Pulmonary: COPD Endocrine: Hypothyroidism, NIDDM Review of Systems Pulmonary/Respiratory: Dyspnea Gastrointestinal: Nausea, Abdominal Pain H&P Exam Vital Signs Vital Signs Date Time Temp Pulse Resp B/P (MAP) Pulse Ox O2 Delivery O2 Flow Rate FiO2 05/16/25 08:29 82 16 95 Room Air 05/16/25 08:29 98.2 197/90 (125) 98.2 General Appeara: Obese Head Exam: Normal inspection Neck Exam: Non-tender Eye Exam: bilateral eye PERRL, bilateral eye EOMI Pulmonary/Respiratory: Crackles Cardiovascular/Chest: Tachycardia Abdominal Pain Onset Location: Generalized abdomen Foot: bilateral foot swelling Neuro/Mental St: Alert, Oriented SEPSIS Sepsis Screen Date sepsis recognized/suspect: May 16, 2025 Time Sepsis recognized/suspect: 0015 Recent Procedure: No On Antibiotic Therapy: No Respiratory Rate >20: No Heart Rate >90: Yes Temp<36 C (96.8 F) or >38.3 C: No SBP <90 or MAP <65 mmHG: No New Acute Mental Status Change: No Is the patient on CPAP, BIPAP,: No Physician Orders Admit (05/16/25 06:01) Complete Blood Count (05/17/25 06:00) Comprehensive Metabolic Panel (05/17/25 06:00) Echo 2d Mode Cardiac Dop (05/16/25 06:01) Nitroglycerin Sublingual (Ntrostat Subli (05/16/25 06:15) Morphine Sulfate Injection (05/16/25 06:15) Stat Ekg For Chest Pain (05/16/25 06:01) Notify Md Of Changes From Base (05/16/25 06:01) Personal Lines Insurance Advisor For 24 Hours (05/16/25 06:01) Emergency Dysrhythmia Protocol (05/16/25 06:01) Rhythm Strips Once Every Shift (05/16/25 06:01) Oxygen By Nasal Cannula (05/16/25 06:01) Lactulose Oral (05/16/25 10:00) Furosemide Injection (Lasix Injection) (05/16/25 10:00) Hydralazine Injection (Apresoline Inject (05/16/25 06:15) Urinalysis (05/16/25 06:36) Albuterol Medneb (Ventolin Medneb) (05/16/25 12:00) Ipratropium Medneb (Atrovent Medneb) (05/16/25 12:00) Discharge (05/16/25 07:26) Vital Signs Date Time Temp Pulse Resp B/P (MAP) Pulse Ox O2 Delivery O2 Flow Rate FiO2 05/16/25 08:29 82 16 95 Room Air 05/16/25 08:29 98.2 82 16 197/90 (125) 95 98.2 Laboratory Tests Test 05/16/25 01:08 White Blood Count 3.9 10^3/uL (4.4-10.8) #L Medications Medications Dose Ordered Sig/Nancy Route Start Time Stop Time Status Last Admin Dose Admin Sodium Chloride 500 ml @ 500 mls/hr Q1H ONCE IV 05/16/25 02:45 05/16/25 03:44 DC 05/16/25 08:31 500 MLS/HR Labs/Xrays Labs Test 05/16/25 01:08 Range/Units White Blood Count 3.9 #L 4.4-10.8 10^3/uL Red Blood Count 4.53 4.0-5.20 10^6/uL Hemoglobin 14.0 12.2-16.2 g/dL Hematocrit 41.5 # 36.0-46.0 % Mean Corpuscular Volume 91.6 80.0-100.0 fL Mean Corpuscular Hemoglobin 31.0 28.0-32.0 pg Mean Corpuscular Hemoglobin Concent 33.8 32.0-36.0 g/dL Red Cell Distribution Width 14.3 11.8-14.3 % Platelet Count 196 140-450 10^3/uL Mean Platelet Volume 8.3 6.9-10.8 fL Neutrophils (%) (Auto) 66.3 37.0-80.0 % Lymphocytes (%) (Auto) 18.3 10.0-50.0 % Monocytes (%) (Auto) 13.7 H 0.0-12.0 % Eosinophils (%) (Auto) 1.0 0.0-7.0 % Basophils (%) (Auto) 0.7 0.0-2.0 % Neutrophils # (Auto) 2.6 1.6-8.6 10 ^3/uL Lymphocytes # (Auto) 0.7 0.4-5.4 10 ^3/uL Monocytes # (Auto) 0.5 0-1.3 10 ^3/uL Eosinophils # (Auto) 0 0-0.8 10 ^3/uL Basophils # (Auto) 0 0-0.2 10 ^3/uL Nucleated Red Blood Cells 0.1 % Sodium Level 144 136-145 mmol/L Potassium Level 3.3 L 3.5-5.1 mmol/L Chloride Level 105 98-107 mmol/L Carbon Dioxide Level 27 20-31 mmol/L Anion Gap 12 5-15 Blood Urea Nitrogen 23 9-23 mg/dL Creatinine 1.43 #H 0.550-1.02 mg/dL Glomerular Filtration Rate Calc 38 >90 mL/min BUN/Creatinine Ratio 16.1 10.0-20.0 Serum Glucose 146 H 74-106 mg/dL Calcium Level 9.7 8.7-10.4 mg/dL Assessment/Plan Problem List: (1) Pericardial effusion (2) TERESA (acute kidney injury) (3) Abdominal pain (4) Constipation Plan IVF, Lactulose, ECHO, cardiology consult Plan discussed with: Patient ESPERANZA MAYORGA MD May 16, 2025 08:59
[2025-05-16 10:37] VITALS: BP 152/86; PULSE 86; RESP 18; TEMP 98.7; O2SAT 98
[2025-05-16] MEDS ORDERED: ALBUTEROL SULF 2.5 MG/0.5ML(0.5%) NEB SOLN NEB SCH (12:00)
[2025-05-16] MEDS ORDERED: IPRATROPIUM BROM 0.5 MG/2.5ML INH SOL NEB SCH (12:00)
--- NOTE | 2025-05-17 03:30 | ECG ---
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
== END 2025-05-16 10:39 | disposition home or self-care (01) | DRG 392 ==
LOC: ER 23:54 → OVERFLOW 05-16 06:01
PROVIDERS: ADMIT Internal Medicine; ATTEND Internal Medicine
DX: K59.00 Constipation, unspecified (principal); N17.9 Acute kidney failure, unspecified; I31.39 Other pericardial effusion (noninflammatory); J44.9 Chronic obstructive pulmonary disease, unspecified; E11.9 Type 2 diabetes mellitus without complications; E03.9 Hypothyroidism, unspecified; I10 Essential (primary) hypertension; Z90.49 Acquired absence of other specified parts of digestive tract; Z88.0 Allergy status to penicillin; Z87.891 Personal history of nicotine dependence; Z79.84 Long term (current) use of oral hypoglycemic drugs
CPT/HCPCS: 36415; 74176; 80048; 85025; 93005; 96361; 96374; G0378

== ENCOUNTER 2025-05-29 07:06 | Emergency (ER) | payer OTHER ==
[~2025-05-29] VITALS: Ht 160 cm; Wt 81.8 kg
[~2025-05-29 07:06] MED LIST changes: +LACT10SO3 PO
[2025-05-29] MEDS: IPRATROPIUM BROM 0.5 MG/2.5ML INH SOL NEB ONE (07:34)
[2025-05-29] MEDS: ALBUTEROL SULF 2.5 MG/0.5ML(0.5%) NEB SOLN NEB ONE (07:34)
[2025-05-29] MEDS: IPRATROPIUM BROM 0.5 MG/2.5ML INH SOL ONE (07:35)
[2025-05-29] MEDS: ALBUTEROL SULF 2.5 MG/0.5ML(0.5%) NEB SOLN ONE (07:35)
--- NOTE | 2025-05-29 07:39 | ED.PDOC ---
Altered Mental Status HPI Comments 75 y/o F, BIBA, with PMhx of COPD, HTN, and DM presents to the ED for CC of ALOC. EMS reports, patient is coming from home where patient's son called d/t patient having a change in behavior with additional symptoms of shortness of breath. Upon arrival to scene, per patient's son patient had a syncopal episode while placing her on a breathing treatment. Patient then had a near syncopal episode when being transferred to the EMS rhayes; patient was hypotensive at this time with a SBP in the 80's. Upon arrival to the ED, patient appears pleasantly confused and is unable to answer questions completely. No other symptoms or modifiers are obtainable at this time. Chief Complaint: ALOC Time Seen by MD: 07:15 Primary Care Provider: NONE Reviewed Notes: Nurses Notes, Shovel Engineer Notes, Medications, Allergies Allergies: Coded Allergies: Iodine (Verified Allergy, Unknown, 01/31/11) Penicillins (Verified Allergy, Unknown, 01/31/11) Home Meds Active Scripts Lactulose (Lactulose) 10 Gm/15 Ml Laura, 10 GM PO BID PRN for 30 Days, #120 ML Prov:BELINDA ZAPATA MD 05/16/25 Levofloxacin Hemihydrate (LEVAQUIN 500 MG) 500 Mg Tab, 1 TAB PO DAILY, #7 TAB Prov:BELINDA ZAPATA MD 05/16/25 Levofloxacin Hemihydrate (LEVOFLOXACIN) 500 Mg Tab, 1 TAB PO DAILY for 7 Days, #7 TAB Prov:TOMMY WU MD 05/12/25 Guaifenesin (Mucinex) 600 Mg Tab, 1 TAB PO BID PRN, #14 TAB Prov:ALEXY LOZANO MD 04/21/25 Reported Medications Atenolol (Tenormin) 50 Mg Tab, DAILY 01/31/11 Levothyroxine Sodium (Synthroid) 125 Mcg Tab 01/31/11 Metformin Hydrochloride (Glucophage) 500 Mg Tab 01/31/11 Benazepril Hcl (Benazepril Hcl) 40 Mg Tab, DAILY 01/31/11 Amlodipine Besylate (Amlodipine Besylate) 10 Mg Tab 01/31/11 Gabapentin (Neurontin) 300 Mg Cap, DAILY 01/31/11 Information Source: Patient, Emergency Med Personnel Mode of Arrival: EMS Severity: Moderate Timing: Hours Duration: Since onset Prehospital treatment: None Quality: Change in Behavior Recent: None History of: Diabetes Associated Signs and Symptoms: None Past Medical History PAST MEDICAL HISTORY: COPD, DM, HTN, Thyroid Surgical History: 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, 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 FISHERMAN Hx Family History Family History: Reviewed,noncontributory to illness Social History Smoker: Non-Smoker, Quit Greater Than 1 Year Alcohol: Occasionally Drugs: Denies Drug Use Lives In: Home Constitutional: denies: chills, diaphoresis, fatigue, fever, malaise, sweats, weakness, others EENTM: denies: blurred vision, double vision, ear bleeding, ear discharge, ear drainage, ear pain, ear ringing, eye pain, eye redness, hearing loss, mouth pain, mouth swelling, nasal discharge, nose bleeding, nose congestion, nose pain, photophobia, tearing, throat pain, throat swelling, voice changes, others Respiratory: denies: cough, hemoptysis, orthopnea, SOB at rest, shortness of breath, SOB with excertion, stridor, wheezing, others Cardiovascular: denies: chest pain, dizzy spells, diaphoresis, Dyspnea on exertion, edema, irregular heart beat, left arm pain, lightheadedness, palpitations, PND, syncope, others Gastrointestinal: denies: abdomen distended, abdominal pain, blood streaked bowels, constipated, diarrhea, dysphagia, difficulty swallowing, hematemesis, melena, nausea, poor appetite, poor fluid intake, rectal bleeding, rectal pain, vomiting, others Genitourinary: denies: abnormal vagina bleeding, burning, dyspareunia, dysuria, flank pain, frequency, hematuria, incontinence, pain, , vagina discharge, urgency, others Neurological: denies: dizziness, fainting, headache, left sided numbness, left sided weakness, numbness, paresthesia, pre-existing deficit, right sided numbness, right sided weakness, seizure, speech problems, tingling, tremors, weakness, others Musculoskeletal: denies: back pain, gout, joint pain, joint swelling, muscle pain, muscle stiffness, neck pain, others Integumetry: denies: bruises, change in color, change in hair/nails, dryness, laceration, lesions, lumps, rash, wounds, others Allergic/Immunocompromised: denies: Difficulty Healing, Frequent Infections, Hives, Itching, others Hematologic/Lymphatic: denies: anemia, blood clots, easy bleeding, easy bruising, swollen glands, others Endocrine: denies: excessive hunger, excessive sweating, excessive thirst, excessive urination, flushing, intolerance to cold, intolerance to heat, unexplained weight gain, unexplained weight loss, others Psychiatric: denies: anxiety, bipolar disorder, depression, hopeless, panic disorder, schizophrenia, sleepless, suicidal, others Unable to Obtain due to: Altered Mental Status All Other Systems: Reviewed and Negative Physical Exam General Appearance: Moderate Distress HEENT: Normal ENT Inspection, Pharynx Normal, TMs Normal Neck: Full Range of Motion, Non-Tender, Normal, Normal Inspection Respiratory: Chest Non-Tender, Lungs Clear, No Accessory Muscle Use, No Respiratory Distress, Normal Breath Sounds Cardiovascular: No Edema, No JVD, No Murmur, No Gallop, Normal Peripheral Pulses, Regular Rate/Rhythm Breast Exam: Deferred Gastrointestinal: No Organomegaly, Non Tender, No Pulsatile Mass, Normal Bowel Sounds, Soft Genitalia: Deferred Pelvic: Deferred Rectal: Deferred Extremities: No calf tenderness, Normal range of motion Musculoskeletal : Apperance: Normal Neurologic: Alert, No Motor Deficits, No Sensory Deficits Cerebellar Function: NOT DONE Reflexes: NOT DONE Skin: Normal Color Peripheral Pulses: 3+ Radial (R), 3+ Radial (L) Lymphatic: No Adenopathy EKG EKG : Pulse Rate (adult): 76 Cardiac Rhythm: NSR Was a procedure done? Was a procedure done?: No Differential Diagnosis (ALOC) Differential Diagnosis: Dehydration, Hypoglycemia X-Ray, Labs, Meds, VS Vital Signs Date Time Temp Pulse Resp B/P (MAP) Pulse Ox O2 Delivery O2 Flow Rate FiO2 05/29/25 12:48 72 05/29/25 09:30 71 22 99 Nasal Cannula* 2 28 05/29/25 09:30 79 19 134/52 (79) 99 05/29/25 08:39 71 05/29/25 08:00 98.5 69 16 128/49 (75) 100 98.5 05/29/25 08:00 Nasal Cannula* 2 28 05/29/25 07:58 76 05/29/25 07:35 18 94 Room Air* 0 21 05/29/25 07:18 98.2 68 16 111/62 97 98.2 05/29/25 07:18 73 Lab Test 05/29/25 09:51 05/29/25 07:39 Range/Units Urine Color Colorless Yellow Urine Clarity Clear Clear Urine pH 7.0 5.0-9.0 Urine Specific [place] 1.003 1.001-1.035 Urine Protein Negative Negative Urine Ketones Negative Negative Urine Blood Negative Negative /uL Urine Nitrite Negative Negative Urine Bilirubin Negative Negative Urine Urobilinogen Normal Negative mg/dL Urine Leukocyte Esterase Negative Negative /uL Urine RBC 1 0 - 4 /hpf Urine Microscopic WBC < 1 0-5 /HPF Urine Squamous Epithelial Cells Few <5 /hpf Urine Bacteria None seen None Seen /hpf Urine Glucose Normal Normal mg/dL White Blood Count 4.2 L 4.4-10.8 10^3/uL Red Blood Count 3.82 L 4.0-5.20 10^6/uL Hemoglobin 11.9 L 12.2-16.2 g/dL Hematocrit 36.0 36.0-46.0 % Mean Corpuscular Volume 94.4 80.0-100.0 fL Mean Corpuscular Hemoglobin 31.1 28.0-32.0 pg Mean Corpuscular Hemoglobin Concent 32.9 32.0-36.0 g/dL Red Cell Distribution Width 15.0 H 11.8-14.3 % Platelet Count 163 140-450 10^3/uL Mean Platelet Volume 8.0 6.9-10.8 fL Neutrophils (%) (Auto) 73.7 37.0-80.0 % Lymphocytes (%) (Auto) 13.7 10.0-50.0 % Monocytes (%) (Auto) 11.2 0.0-12.0 % Eosinophils (%) (Auto) 1.1 0.0-7.0 % Basophils (%) (Auto) 0.3 0.0-2.0 % Neutrophils # (Auto) 3.1 1.6-8.6 10 ^3/uL Lymphocytes # (Auto) 0.6 0.4-5.4 10 ^3/uL Monocytes # (Auto) 0.5 0-1.3 10 ^3/uL Eosinophils # (Auto) 0 0-0.8 10 ^3/uL Basophils # (Auto) 0 0-0.2 10 ^3/uL Nucleated Red Blood Cells 0.0 % Sodium Level 139 136-145 mmol/L Potassium Level 3.6 3.5-5.1 mmol/L Chloride Level 104 98-107 mmol/L Carbon Dioxide Level 24 20-31 mmol/L Anion Gap 11 5-15 Blood Urea Nitrogen 15 9-23 mg/dL Creatinine 1.19 H 0.550-1.02 mg/dL Glomerular Filtration Rate Calc 47 >90 mL/min BUN/Creatinine Ratio 12.6 10.0-20.0 Serum Glucose 152 H 74-106 mg/dL Calcium Level 9.3 8.7-10.4 mg/dL Troponin I High Sensitivity 16 </=34 ng/L Current Medications Medications (Trade) Dose Ordered Sig/Nancy Route Start Time Stop Time Status Last Admin Sodium Chloride 1,000 ml @ 1,000 mls/hr Q1H ONCE IV 05/29/25 07:30 05/29/25 08:29 DC 05/29/25 08:26 Methylprednisolone Sodium Succinate (Solu Medrol) 125 mg ONCE ONCE IV 05/29/25 07:30 05/29/25 07:31 DC 05/29/25 08:26 Albuterol (Ventolin Medneb) 5 mg ONCE ONCE NEB 05/29/25 07:30 05/29/25 07:31 DC 05/29/25 07:34 Ipratropium [place] (Atrovent Medneb) 0.5 mg ONCE ONCE NEB 05/29/25 07:30 05/29/25 07:31 DC 05/29/25 07:34 Patient alert. Appropriate. Chronic condition. Saturation pristine on room air. No respiratory distress. Heart rate within normal limits. Possible COPD. Was given breathing treatment. [facility] with [facility]. Explained to the patient. Was told to follow up with her primary care physician. Was told to come back if there is any problem. [address] [address] Ph: [phone] DIAGNOSTIC IMAGING Diagnostic Imaging Report : [id number] Signed PATIENT: JEY COX MACCT: [id number] UNIT: [id number] : 1950 LOC: ER ROOM / BED: / AGE / SEX: 75 / F ADM STATUS: REG ER SERVICE 0 ORDERING PHYSICIAN: TOMMY WU MD PROCEDURE(s): CXRP - CHEST PORTABLE REASON: sob ORDER NUMBER(s): [id number], ACCESSION NUMBER(s): [id number] CHEST RADIOGRAPH Indication: sob Technique: Single frontal view of the chest was obtained COMPARISON: XY CHEST PORTABLE on DOS: 05/12/25, XY CHEST PORTABLE on DOS: 04/21/25 FINDINGS: Lines and Tubes: None Lungs: Mild diffuse increased prominence of the pulmonary vasculature. No evidence of focal consolidation. Pleura: No effusion. No pneumothorax. Cardiomediastinal contours: Cardiomegaly. Bones: Unremarkable IMPRESSION: 1. Cardiomegaly. 2. Mild diffuse increased prominence of the pulmonary vasculature. ATED BY: JESSEE RAM MD DICTATED DATE/TIME: 05/29/25755 SIGNED BY: JESSEE RAM MD SIGNED DATE/TIME: 05/29/25755 CC: Time of 1ST Reevaluation: 07:45 Reevaluation 1ST: Unchanged Patient Education/Counseling: Diagnosis, Treatment Family Education/Counseling: No Family Present SEPSIS Sepsis Screen Physician Orders Chest Portable (05/29/25 07:21) Vital Signs Date Time Temp Pulse Resp B/P (MAP) Pulse Ox O2 Delivery O2 Flow Rate FiO2 05/29/25 12:48 72 05/29/25 09:30 71 22 99 Nasal Cannula* 2 28 05/29/25 09:30 79 19 134/52 (79) 99 05/29/25 08:39 71 05/29/25 08:00 98.5 69 16 128/49 (75) 100 98.5 05/29/25 08:00 Nasal Cannula* 2 28 05/29/25 07:58 76 05/29/25 07:35 18 94 Room Air* 0 21 05/29/25 07:18 98.2 68 16 111/62 97 98.2 05/29/25 07:18 73 Laboratory Tests Test 05/29/25 07:39 White Blood Count 4.2 10^3/uL (4.4-10.8) L Medications Medications Dose Ordered Sig/Nancy Route Start Time Stop Time Status Last Admin Dose Admin Albuterol 5 mg ONCE ONCE NEB 05/29/25 07:30 05/29/25 07:31 DC 05/29/25 07:34 Ipratropium [place] 0.5 mg ONCE ONCE NEB 05/29/25 07:30 05/29/25 07:31 DC 05/29/25 07:34 Methylprednisolone Sodium Succinate 125 mg ONCE ONCE IV 05/29/25 07:30 05/29/25 07:31 DC 05/29/25 08:26 Sodium Chloride 1,000 ml @ 1,000 mls/hr Q1H ONCE IV 05/29/25 07:30 05/29/25 08:29 DC 05/29/25 08:26 Departure 1 Departure Time of Disposition: 07:56 Impression: Primary Impression: COPD exacerbation Disposition: ADMITTED INPATIENT Admit to: Med Surg Condition: Guarded e-Prescriptions Prednisone (Prednisone) 10 Mg Tab 10 MG PO DAILY for 5 Days, #5 MG Prov: TOMMY WU MD 05/29/25 Levofloxacin Hemihydrate (LEVOFLOXACIN) 500 Mg Tab 1 TAB PO DAILY for 7 Days, #7 TAB Prov: TOMMY WU MD 05/29/25 Critical Care Note Critical Care Time?: No Stability Stability form required: No Heart Score Heart Score: Heart Score Response (Comments) Value History Slightly Suspicious 0 EKG Normal 0 Age >65 2 Risk Factors >3 or Hx ASHD 2 Troponin Normal limit 0 Total 4 I personally scribed for TOMMY WU MD ([email or web address]) on 05/29/25 at 07:39. Electronically submitted by Azeb Mary ([email or web address]). I personally scribed for TOMMY WU MD ([email or web address]) on 05/29/25 at 08:14. Electronically submitted by Azeb Mary ([email or web address]). TOMMY WU MD May 29, 2025 07:39
[2025-05-29 07:59] LABS: Hematocrit 36.0 % (36.0-46.0); Hemoglobin 11.9 g/dL (12.2-16.2); Mean Corpuscular Hemoglobin 31.1 pg (28.0-32.0); Mean Corpuscular Volume 94.4 fL (80.0-100.0); Nucleated Red Blood Cells % 0.0 %
--- NOTE | 2025-05-29 07:59 | DVH ---
CHEST RADIOGRAPH Indication: sob Technique: Single frontal view of the chest was obtained COMPARISON: XY CHEST PORTABLE on DOS: 05/12/25, XY CHEST PORTABLE on DOS: 04/21/25 FINDINGS: Lines and Tubes: None Lungs: Mild diffuse increased prominence of the pulmonary vasculature. No evidence of focal consolida tion. Pleura: No effusion. No pneumothorax. Cardiomediastinal contours: Cardiomegaly. Bones: Unremarkable IMPRESSION: 1. Cardiomegaly. 2. Mild diffuse increased prominence of the pulmonary vasculature.
[2025-05-29 08:00] VITALS: TEMP 98.5
[2025-05-29 08:02] LABS: Chloride 104 mmol/L (98-107); Potassium 3.6 mmol/L (3.5-5.1); Sodium 139 mmol/L (136-145)
[2025-05-29 08:03] LABS: Anion Gap 11 (5-15); Calcium 9.3 mg/dL (8.7-10.4); Carbon Dioxide 24 mmol/L (20-31)
[2025-05-29 08:08] LABS: BUN/Creatinine Ratio 12.6 (10.0-20.0); Blood Urea Nitrogen 15 mg/dL (9-23)
[2025-05-29 08:12] LABS: Glucose 152 mg/dL (74-106)
[2025-05-29] MEDS: SODIUM CHLORIDE 0.9% 1,000 ML IV ONE (08:26)
[2025-05-29] MEDS: methylPREDNISolone SOD SUCC 125 MG/2 ML VL IV ONE (08:26)
[2025-05-29 09:30] VITALS: PULSE 71; RESP 22; O2SAT 99
--- NOTE | 2025-05-29 09:55 | ECG ---
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
[2025-05-29 10:01] LABS: Urine Protein, UAD Negative (Negative)
--- NOTE | 2025-05-29 11:16 | DVHDS2 ---
New Physician D'charge PN Admitting Diagnosis Admitting Diagnosis sob Discharge Diagnosis copd Operations or Procedures none Reason(s) For Hospitalization Surgery Hospital Course 75 F who comes to ER for SOB, She has a hx of COPD not on home o2 and when she arrived she was noted to have BP in the 100s systolic and was given IV fluid bolus and BP improved to 120-130s systolic. She was given nebs and IV steroids here in the ER. She was saturating at 94% on room air. Otherwise hemodynamically she is stable and awake and alert. Her CXR was clear showed no infiltrate or pulmonary edema. SHe will be discharged home and will order her home o2 PRN to be delivered to her house. Spoke to ER provider and all parties in agreement with plan. [facility] to arrange for all outpt follow up and patent to dc home. Treatment Plan Discharge Condition of Discharge Good Disposition Home Discharge Instructions Diet: Cardiac 2g Na,low cholest Activity: No Restrictions, As Tolerated Medications: see med sheet Follow Up Care Discharge Statement: "Patient was advised to return to the ER or call 911 if any headaches, dizziness, shortness of breath, chest pain, abdominal pain, bleeding, fevers, or worsening of medical condition. Patient was counseled about treatment plan, medications, possible side effects, patientverbalized understanding. All questions were answered to the best of my ability. This discharge took greater then 30 minutes in planning, reviewing docum entation, counseling the patient, and discussing with other team members." BELINDA ZAPATA MD May 29, 2025 11:16
[2025-05-29 12:30] VITALS: BP 121/47; RESP 14; O2SAT 89
[2025-05-29 12:48] VITALS: PULSE 72
[2025-05-29] MEDS ORDERED: PRED10TA PO (12:50)
== END 2025-05-29 14:44 | disposition home or self-care (01) ==
LOC: ER 07:06 → EDBD 07:06 → ER 14:35
DX: J44.1 Chronic obstructive pulmonary disease with (acute) exacerbation (principal); I10 Essential (primary) hypertension; E11.9 Type 2 diabetes mellitus without complications; F10.90 Alcohol use, unspecified, uncomplicated; Z87.891 Personal history of nicotine dependence; Z98.890 Other specified postprocedural states; Z90.49 Acquired absence of other specified parts of digestive tract; Z88.0 Allergy status to penicillin; Z79.899 Other long term (current) drug therapy; Z88.8 Allergy status to other drugs, medicaments and biological substances
CPT/HCPCS: 36415; 71045; 80048; 81001; 82947; 84484; 85025; 93005; 94640; 96361; 96374; 99285; J2919; J7030

== ENCOUNTER 2025-05-29 22:42 | Emergency (ER) | payer OTHER ==
[~2025-05-29] VITALS: Ht 165.1 cm; Wt 107.0 kg
[~2025-05-29 22:42] MED LIST changes: +PRED10TA PO
--- NOTE | 2025-05-29 23:15 | ED.PDOC ---
SOB-HPI HPI Comments 75 year old female presents to ER with complaints of anxiety x 1 day. Patient is present with son with PMH significant for COPD, stating that she started "to panic" and feel "anxious" at 10 p.m. prior to arrival to ER when she noticed that "a piece" to her COPD breathing treatment tube had broke upon giving herself a breathing treatment at home. Notes that her symptoms have since fully subsided, denying any current symptoms and states that she did replace the breathing treatment tube with a new tube. Notes she was seen in ER here earlier today and discharged home with levofloxacin and prednisone for acute COPD exacerbation. Patient presents to ER, in no distress with vitals stable. 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 Family History Family History: Reviewed,noncontributory to illness Social History Smoker: Non-Smoker, Quit Greater Than 1 Year Alcohol: Occasionally Drugs: Denies Drug Use Lives In: Home Constitutional: denies: chills, diaphoresis, fatigue, fever, malaise, sweats, weakness, others EENTM: denies: blurred vision, double vision, ear bleeding, ear discharge, ear drainage, ear pain, ear ringing, eye pain, eye redness, hearing loss, mouth pain, mouth swelling, nasal discharge, nose bleeding, nose congestion, nose pain, photophobia, tearing, throat pain, throat swelling, voice changes, others Respiratory: reports: others (As stated in HPI) Cardiovascular: denies: chest pain, dizzy spells, diaphoresis, Dyspnea on exertion, edema, irregular heart beat, left arm pain, lightheadedness, palpitations, PND, syncope, others Gastrointestinal: denies: abdomen distended, abdominal pain, blood streaked bowels, constipated, diarrhea, dysphagia, difficulty swallowing, hematemesis, melena, nausea, poor appetite, poor fluid intake, rectal bleeding, rectal pain, vomiting, others Genitourinary: denies: abnormal vagina bleeding, burning, dyspareunia, dysuria, flank pain, frequency, hematuria, incontinence, pain, , vagina discharge, urgency, others Neurological: denies: dizziness, fainting, headache, left sided numbness, left sided weakness, numbness, paresthesia, pre-existing deficit, right sided numbness, right sided weakness, seizure, speech problems, tingling, tremors, weakness, others Musculoskeletal: denies: back pain, gout, joint pain, joint swelling, muscle pain, muscle stiffness, neck pain, others Integumetry: denies: bruises, change in color, change in hair/nails, dryness, laceration, lesions, lumps, rash, wounds, others Allergic/Immunocompromised: denies: Difficulty Healing, Frequent Infections, Hives, Itching, others Hematologic/Lymphatic: denies: anemia, blood clots, easy bleeding, easy bruising, swollen glands, others Endocrine: denies: excessive hunger, excessive sweating, excessive thirst, excessive urination, flushing, intolerance to cold, intolerance to heat, unexplained weight gain, unexplained weight loss, others Psychiatric: reports: others (As stated in HPI) Physical Exam General Appearance: No Apparent Distress, Obese HEENT: Normal ENT Inspection, PERRL/EOMI, Pharynx Normal, TMs Normal Neck: Full Range of Motion, Non-Tender, Normal Respiratory: Chest Non-Tender, Lungs Clear, No Accessory Muscle Use, No Respiratory Distress, Normal Breath Sounds Cardiovascular: No Murmur, No Gallop, Regular Rate/Rhythm Breast Exam: Deferred Gastrointestinal: NOT DONE Genitalia: Deferred Pelvic: Deferred Rectal: Deferred Extremities: Normal capillary refill, Normal range of motion Neurologic: Alert, No Motor Deficits, Normal Affect, Normal Mood, No Sensory Deficits Cerebellar Function: Normal Reflexes: Normal Skin: Dry, Normal Color, Warm Peripheral Pulses: 2+ Radial (R), 2+ Radial (L), 2+ Brachial (R), 2+ Brachial (L) Lymphatic: No Adenopathy Was a procedure done? Was a procedure done?: No Sedation Sedation?: No Differential Dx Differential Diagnosis: Hyperventilation, Myocardial infarction, Pneumonia, Respiratory Distress X-Ray, Labs, Meds, VS Vital Signs Date Time Temp Pulse Resp B/P (MAP) Pulse Ox O2 Delivery O2 Flow Rate FiO2 05/29/25 22:42 98.3 90 18 103/79 96 98.3 Patient asymptomatic, vitals stable and in no distress during ER visit/prior to discharge Previous chart visit reviewed Advised to follow up with PCP in 1-2 days Patient and patient's son verbalized understanding and agreeable with current plan of care Advised to return to ER immediately if symptoms worsen Time of 1ST Reevaluation: 22:54 Reevaluation 1ST: N/A Patient Education/Counseling: Diagnosis, Treatment, Prognosis, Need For Follow Up Family Education/Counseling: Diagnosis, Treatment, Prognosis, Need For Follow Up SEPSIS Sepsis Screen Date sepsis recognized/suspect: May 29, 2025 Time Sepsis recognized/suspect: 2241 Recent Procedure: No On Antibiotic Therapy: No Respiratory Rate >20: No Heart Rate >90: No Temp<36 C (96.8 F) or >38.3 C: No SBP <90 or MAP <65 mmHG: No New Acute Mental Status Change: No Is the patient on CPAP, BIPAP,: No Vital Signs Date Time Temp Pulse Resp B/P (MAP) Pulse Ox O2 Delivery O2 Flow Rate FiO2 05/29/25 22:42 98.3 90 18 103/79 96 98.3 Departure 1 Departure Time of Disposition: 23:14 Impression: Primary Impression: Anxiety Disposition: 01 HOME / SELF CARE / HOMELESS Condition: Stable Discharged With: Other (son) Critical Care Note Critical Care Time?: No Stability Stability form required: No Heart Score Heart Score: Heart Score Response (Comments) Value History N/A 0 EKG N/A 0 Age N/A 0 Risk Factors N/A 0 Troponin N/A 0 Total 0 ALLEGRA BAUTISTA May 29, 2025 23:15
[2025-05-29 23:17] VITALS: BP 126/60; TEMP 97.6; O2SAT 96
[2025-05-29 23:19] VITALS: PULSE 80; RESP 18
== END 2025-05-29 23:22 | disposition home or self-care (01) ==
LOC: ER 22:42
DX: F41.9 Anxiety disorder, unspecified (principal); E11.9 Type 2 diabetes mellitus without complications; I10 Essential (primary) hypertension; J44.1 Chronic obstructive pulmonary disease with (acute) exacerbation; Z90.49 Acquired absence of other specified parts of digestive tract

== ENCOUNTER 2025-06-03 05:42 | Emergency (ER) | payer OTHER ==
[~2025-06-03] VITALS: Ht 167.6 cm; Wt 100.0 kg
--- NOTE | 2025-06-03 06:47 | ED.PDOC ---
SOB-HPI HPI Comments 75-year-old female presents here with 2 days of nausea with small amounts of vomiting. She reports positive chills. Reports lower back pain points to her right flank. Denies any dysuria. No fevers. No cough cold runny nose. Patient brought in here by EMS. Reports vomiting is non bloody nonbilious. She states she has been able to drink and tolerate soup only. She has been drinking water. Denies any chest pain or shortness of breath. 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 Family History Family History: Reviewed,noncontributory to illness Social History Smoker: Non-Smoker, Quit Greater Than 1 Year Alcohol: Occasionally Drugs: Denies Drug Use Lives In: Home Constitutional: reports: chills; denies: diaphoresis, fatigue, fever, malaise, sweats, weakness, others EENTM: denies: blurred vision, double vision, ear bleeding, ear discharge, ear drainage, ear pain, ear ringing, eye pain, eye redness, hearing loss, mouth pain, mouth swelling, nasal discharge, nose bleeding, nose congestion, nose pain, photophobia, tearing, throat pain, throat swelling, voice changes, others Respiratory: denies: cough, hemoptysis, orthopnea, SOB at rest, shortness of breath, SOB with excertion, stridor, wheezing, others Cardiovascular: denies: chest pain, dizzy spells, diaphoresis, Dyspnea on exertion, edema, irregular heart beat, left arm pain, lightheadedness, palpitations, PND, syncope, others Gastrointestinal: reports: nausea, vomiting; denies: abdomen distended, abdominal pain, blood streaked bowels, constipated, diarrhea, dysphagia, difficulty swallowing, hematemesis, melena, poor appetite, poor fluid intake, rectal bleeding, rectal pain, others Genitourinary: denies: abnormal vagina bleeding, burning, dyspareunia, dysuria, flank pain, frequency, hematuria, incontinence, pain, , vagina discharge, urgency, others Neurological: denies: dizziness, fainting, headache, left sided numbness, left sided weakness, numbness, paresthesia, pre-existing deficit, right sided numbn ess, right sided weakness, seizure, speech problems, tingling, tremors, weakness, others Musculoskeletal: denies: back pain, gout, joint pain, joint swelling, muscle pain, muscle stiffness, neck pain, others Integumetry: denies: bruises, change in color, change in hair/nails, dryness, laceration, lesions, lumps, rash, wounds, others Allergic/Immunocompromised: denies: Difficulty Healing, Frequent Infections, Hives, Itching, others Hematologic/Lymphatic: denies: anemia, blood clots, easy bleeding, easy bruising, swollen glands, others Endocrine: denies: excessive hunger, excessive sweating, excessive thirst, excessive urination, flushing, intolerance to cold, intolerance to heat, unexplained weight gain, unexplained weight loss, others Psychiatric: denies: anxiety, bipolar disorder, depression, hopeless, panic disorder, schizophrenia, sleepless, suicidal, others All Other Systems: Reviewed and Negative Physical Exam General Appearance: No Apparent Distress, Normal HEENT: Normal ENT Inspection, Pharynx Normal, TMs Normal Neck: Full Range of Motion, Non-Tender, Normal, Normal Inspection Respiratory: Chest Non-Tender, Lungs Clear, No Accessory Muscle Use, No Respiratory Distress, Normal Breath Sounds Cardiovascular: No Edema, No JVD, No Murmur, No Gallop, Normal Peripheral Pulses, Regular Rate/Rhythm Breast Exam: Deferred Gastrointestinal: No Organomegaly, Non Tender, Soft Genitalia: Deferred Pelvic: Deferred Rectal: Deferred Extremities: No calf tenderness, Normal capillary refill, Normal inspection, Normal range of motion, Non-tender, No pedal edema Musculoskeletal : Apperance: Normal Neurologic: Alert, No Motor Deficits, Normal Affect, Normal Mood, No Sensory Deficits Cerebellar Function: Normal Reflexes: Normal Skin: Dry, Normal Color, Warm Lymphatic: No Adenopathy Was a procedure done? Was a procedure done?: No Differential Dx Differential Diagnosis: URI Comments Influenza, UTI, pyelonephritis, dehydration, gastroenteritis X-Ray, Labs, Meds, VS Vital Signs Date Time Temp Pulse Resp B/P (MAP) Pulse Ox O2 Delivery O2 Flow Rate FiO2 06/03/25 05:53 98.5 81 18 137/74 97 98.5 06/03/25 05:47 75 Lab Test 06/03/25 07:10 06/03/25 06:45 Range/Units White Blood Count 3.9 L 4.4-10.8 10^3/uL Red Blood Count 4.07 4.0-5.20 10^6/uL Hemoglobin 12.4 12.2-16.2 g/dL Hematocrit 36.2 36.0-46.0 % Mean Corpuscular Volume 89.0 # 80.0-100.0 fL Mean Corpuscular Hemoglobin 30.5 28.0-32.0 pg Mean Corpuscular Hemoglobin Concent 34.3 32.0-36.0 g/dL Red Cell Distribution Width 14.7 H 11.8-14.3 % Platelet Count 216 140-450 10^3/uL Mean Platelet Volume 8.2 6.9-10.8 fL Neutrophils (%) (Auto) 66.9 37.0-80.0 % Lymphocytes (%) (Auto) 18.9 10.0-50.0 % Monocytes (%) (Auto) 11.9 0.0-12.0 % Eosinophils (%) (Auto) 1.8 0.0-7.0 % Basophils (%) (Auto) 0.5 0.0-2.0 % Neutrophils # (Auto) 2.6 1.6-8.6 10 ^3/uL Lymphocytes # (Auto) 0.7 0.4-5.4 10 ^3/uL Monocytes # (Auto) 0.5 0-1.3 10 ^3/uL Eosinophils # (Auto) 0.1 0-0.8 10 ^3/uL Basophils # (Auto) 0 0-0.2 10 ^3/uL Nucleated Red Blood Cells 0.0 % Sodium Level 140 136-145 mmol/L Potassium Level 3.6 3.5-5.1 mmol/L Chloride Level 104 98-107 mmol/L Carbon Dioxide Level 23 20-31 mmol/L Anion Gap 13 5-15 Blood Urea Nitrogen 26 H 9-23 mg/dL Creatinine 1.39 H 0.550-1.02 mg/dL Glomerular Filtration Rate Calc 39 >90 mL/min BUN/Creatinine Ratio 18.7 10.0-20.0 Serum Glucose 129 H 74-106 mg/dL Calcium Level 9.4 8.7-10.4 mg/dL Total Bilirubin 0.6 0.2-1.0 mg/dL Aspartate Amino Transferase (AST) 29 13-40 U/L Alanine Aminotransferase (ALT) 26 7-40 U/L Alkaline Phosphatase 89 46-116 U/L Total Protein 7.2 5.7-8.2 g/dL Albumin 4.4 3.2-4.8 g/dL Urine Color Light-yellow Yellow Urine Clarity Clear Clear Urine pH 5.5 5.0-9.0 Urine Specific [place] 1.014 1.001-1.035 Urine Protein Negative Negative Urine Ketones Negative Negative Urine Blood Negative Negative /uL Urine Nitrite Negative Negative Urine Bilirubin Negative Negative Urine Urobilinogen Normal Negative mg/dL Urine Leukocyte Esterase Negative Negative /uL Urine RBC <1 0 - 4 /hpf Urine Microscopic WBC 1 0-5 /HPF Urine Squamous Epithelial Cells Few <5 /hpf Urine Bacteria None seen None Seen /hpf Urine Hyaline Casts Few 0 - 2 /lpf Urine Glucose Normal Normal mg/dL Current Medications Medications (Trade) Dose Ordered Sig/Nancy Route Start Time Stop Time Status Last Admin Ondansetron HCl (Zofran Po) 4 mg ONCE ONCE PO 06/03/25 07:00 06/03/25 07:01 DC 06/03/25 08:15 Time of 1ST Reevaluation: 08:55 Reevaluation 1ST: Unchanged Patient Education/Counseling: Diagnosis, Treatment Family Education/Counseling: No Family Present SEPSIS Sepsis Screen Date sepsis recognized/suspect: Jun 03, 2025 Time Sepsis recognized/suspect: 0545 Recent Procedure: No On Antibiotic Therapy: No Respiratory Rate >20: No Heart Rate >90: No Temp<36 C (96.8 F) or >38.3 C: No SBP <90 or MAP <65 mmHG: No New Acute Mental Status Change: No Is the patient on CPAP, BIPAP,: No Vital Signs Date Time Temp Pulse Resp B/P (MAP) Pulse Ox O2 Delivery O2 Flow Rate FiO2 06/03/25 05:53 98.5 81 18 137/74 97 98.5 06/03/25 05:47 75 Laboratory Tests Test 06/03/25 07:10 White Blood Count 3.9 10^3/uL (4.4-10.8) L Medications Medications Dose Ordered Sig/Nancy Route Start Time Stop Time Status Last Admin Dose Admin Ondansetron HCl 4 mg ONCE ONCE PO 06/03/25 07:00 06/03/25 07:01 DC 06/03/25 08:15 Departure 1 Departure Time of Disposition: 09:03 Impression: Primary Impression: Generalized weakness Additional Impression: Chronic kidney disease Qualified Codes: N18.9 - Chronic kidney disease, unspecified Disposition: HOME / SELF CARE / HOMELESS Condition: Stable Additional Instructions: Follow up with the primary care physician in 2-3 days. Return to the ER if symptoms worsen or persist. Discharged With: Self Critical Care Note Critical Care Time?: No Stability Stability form required: No Heart Score Heart Score: Heart Score Response (Comments) Value History N/A 0 EKG N/A 0 Age N/A 0 Risk Factors N/A 0 Troponin N/A 0 Total 0 I personally scribed for ALLIE EUBANKS MD ([email or web address]) on 06/03/25 at 06:47. Electronically submitted by Zara Nagy ([facility] I personally scribed for ALLIE EUBANKS MD ([email or web address]) on 06/03/25 at 07:07. Electronically submitted by Zara Nagy ([employer]). ALLIE EUBANKS MD Jun 03, 2025 06:47
--- NOTE | 2025-06-03 07:12 | ECG ---
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
[2025-06-03 07:41] LABS: Hematocrit 36.2 % (36.0-46.0); Hemoglobin 12.4 g/dL (12.2-16.2); Mean Corpuscular Hemoglobin 30.5 pg (28.0-32.0); Mean Corpuscular Volume 89.0 fL (80.0-100.0); Nucleated Red Blood Cells % 0.0 %
[2025-06-03 07:56] LABS: Alanine Aminotransferase 26 U/L (7-40); Alkaline Phosphatase 89 U/L (46-116); Anion Gap 13 (5-15); Calcium 9.4 mg/dL (8.7-10.4); Carbon Dioxide 23 mmol/L (20-31); Chloride 104 mmol/L (98-107); Potassium 3.6 mmol/L (3.5-5.1); Sodium 140 mmol/L (136-145)
[2025-06-03 07:57] LABS: Albumin 4.4 g/dL (3.2-4.8); BUN/Creatinine Ratio 18.7 (10.0-20.0); Bilirubin, Total 0.6 mg/dL (0.2-1.0); Total Protein 7.2 g/dL (5.7-8.2)
[2025-06-03 07:59] LABS: Blood Urea Nitrogen 26 mg/dL (9-23); Glucose 129 mg/dL (74-106)
[2025-06-03] MEDS: ONDANSETRON ODT 4 MG TAB PO ONE (08:15)
[2025-06-03 08:26] LABS: Urine Protein, UAD Negative (Negative)
[2025-06-03] MEDS ORDERED: ZOFR4T PO (09:10)
[2025-06-03 09:30] VITALS: BP 152/114; TEMP 96.6
[2025-06-03 09:39] VITALS: PULSE 79; RESP 16; O2SAT 98
== END 2025-06-03 11:00 | disposition home or self-care (01) ==
LOC: EDBD 05:42 → ER 05:47
DX: N17.9 Acute kidney failure, unspecified (principal); R53.1 Weakness; J44.9 Chronic obstructive pulmonary disease, unspecified; I10 Essential (primary) hypertension; E11.9 Type 2 diabetes mellitus without complications; F10.90 Alcohol use, unspecified, uncomplicated; Z87.891 Personal history of nicotine dependence; Z90.49 Acquired absence of other specified parts of digestive tract; Z98.890 Other specified postprocedural states; Y90.9 Presence of alcohol in blood, level not specified
CPT/HCPCS: 36415; 80053; 81001; 85025; 93005; 99284; Q0162

== ENCOUNTER 2025-06-05 14:00 | Emergency (ER) | payer OTHER ==
[~2025-06-05] VITALS: Ht 165.1 cm; Wt 90.9 kg
[~2025-06-05 14:00] MED LIST changes: +ZOFR4T PO
[2025-06-05 14:18] VITALS: BP 102/57; PULSE 70; RESP 20; TEMP 98.2; O2SAT 94
--- NOTE | 2025-06-05 18:13 | ECG ---
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
--- NOTE | 2025-06-05 21:25 | ED.PDOC ---
HPI (NEURO) HPI Comments 75y F who presents to the ED for chief complaint of dizziness. Pt states she has been having dizziness since earlier this AM. Pt states the dizziness is intermittent, with no associated exacerbating or relieving factors. Pt states her dizziness has improved in the ED, and pt is able to ambulate without any associated problems. Pt otherwise is alert and oriented x 4 and denies any changes in gait, vision or speech. Pt otherwise denies any other symptoms at this time. No head trauma. No recent illness. Patient requesting to be discharged home. Patient refusing all blood work. 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 Family History Family History: Reviewed,noncontributory to illness Social History Smoker: Non-Smoker, Quit Greater Than 1 Year Alcohol: Occasionally Drugs: Denies Drug Use Lives In: Home Constitutional: denies: chills, diaphoresis, fatigue, fever, malaise, sweats, weakness, others EENTM: denies: blurred vision, double vision, ear bleeding, ear discharge, ear drainage, ear pain, ear ringing, eye pain, eye redness, hearing loss, mouth pain, mouth swelling, nasal discharge, nose bleeding, nose congestion, nose pain, photophobia, tearing, throat pain, throat swelling, voice changes, others Respiratory: denies: cough, hemoptysis, orthopnea, SOB at rest, shortness of breath, SOB with excertion, stridor, wheezing, others Cardiovascular: denies: chest pain, dizzy spells, diaphoresis, Dyspnea on exertion, edema, irregular heart beat, left arm pain, lightheadedness, palpitations, PND, syncope, others Gastrointestinal: denies: abdomen distended, abdominal pain, blood streaked bowels, constipated, diarrhea, dysphagia, difficulty swallowing, hematemesis, melena, nausea, poor appetite, poor fluid intake, rectal bleeding, rectal pain, vomiting, others Genitourinary: denies: abnormal vagina bleeding, burning, dyspareunia, dysuria, flank pain, frequency, hematuria, incontinence, pain, , vagina discharge, urgency, others Neurological: reports: dizziness; denies: fainting, headache, left sided numbness, left sided weakness, numbness, paresthesia, pre-existing deficit, right sided numbness, right sided weakness, seizure, speech problems, tingling, tremors, weakness, others Musculoskeletal: denies: back pain, gout, joint pain, joint swelling, muscle pain, muscle stiffness, neck pain, others Integumetry: denies: bruises, change in color, change in hair/nails, dryness, laceration, lesions, lumps, rash, wounds, others Allergic/Immunocompromised: denies: Difficulty Healing, Frequent Infections, Hives, Itching, others Hematologic/Lymphatic: denies: anemia, blood clots, easy bleeding, easy bruising, swollen glands, others Endocrine: denies: excessive hunger, excessive sweating, excessive thirst, excessive urination, flushing, intolerance to cold, intolerance to heat, unexplained weight gain, unexplained weight loss, others Psychiatric: denies: anxiety, bipolar disorder, depression, hopeless, panic disorder, schizophrenia, sleepless, suicidal, others All Other Systems: Reviewed and Negative Physical Exam General Appearance: No Apparent Distress, Normal HEENT: Normal ENT Inspection, Pharynx Normal, TMs Normal Neck: Full Range of Motion, Non-Tender, Normal, Normal Inspection Respiratory: Chest Non-Tender, Lungs Clear, No Accessory Muscle Use, No Respiratory Distress, Normal Breath Sounds Cardiovascular: No Edema, No JVD, No Murmur, No Gallop, Normal Peripheral Pulses, Regular Rate/Rhythm Breast Exam: Deferred Gastrointestinal: No Organomegaly, Non Tender, No Pulsatile Mass, Normal Bowel Sounds, Soft Genitalia: Deferred Pelvic: Deferred Rectal: Deferred Extremities: No calf tenderness, Normal capillary refill, Normal inspection, Normal range of motion, Non-tender, No pedal edema Musculoskeletal : Apperance: Normal Neurologic: Alert, parts interpreter II-XII nml as Tested, No Motor Deficits, Normal Affect, Normal Mood, No Sensory Deficits Cerebellar Function: Normal Reflexes: Normal Skin: Dry, Normal Color, Warm Lymphatic: No Adenopathy Was a procedure done? Was a procedure done?: No Differential Diagnosis (SZ) Seizure: Hypocalcemia, Hypoglycemia, Hyponatremia CVA: CVA, DKA General Weakness: Dehydration, Vertigo: central, Vertigo: peripheral X-Ray, Labs, Meds, VS Vital Signs Date Time Temp Pulse Resp B/P (MAP) Pulse Ox O2 Delivery O2 Flow Rate FiO2 06/05/25 14:18 98.2 70 20 102/57 94 98.2 06/05/25 14:12 66 X-Ray, Labs, Meds, VS Comment 75-year-old female with history of hypertension, COPD, additional medical history as above here today with complaints of dizziness that has since resolved. Vital signs stable, afebrile. Physical exam without any acute findings including a normal neurologic exam. Patient ambulating to the restroom without assistance. I informed the patient that I would prefer to do some lab work on her and a CT scan of her head however she is refusing this and Patient requesting to be discharged home. Patient has been in the ER for approximately 7 hours, see note with the explanation below. States that she feels better and wants to go home and eat dinner. Patient discharged in stable condition with strict return precautions for return of dizziness, numbness, weakness, chest pain, fevers, or any other new or concerning symptoms. Patient instructed to follow up with the primary care provider within 2-3 days for re-evaluation. Of note - Patient initially checked into the ER but was marked as "no answer" and taken off the tracker board but she states that she was outside at the time. Patient was placed back on the tracker board after being off of it for over 5 hours. This explains the patient's prolonged length of stay. Time of 1ST Reevaluation: 21:30 Reevaluation 1ST: Resolved Patient Education/Counseling: Diagnosis, Treatment, Prognosis, Need For Follow Up Family Education/Counseling: No Family Present Departure 1 Departure Time of Disposition: 21:52 Impression: Primary Impression: Dizziness Disposition: 01 HOME / SELF CARE / HOMELESS Condition: Stable Discharged With: Self, Relative (son) Critical Care Note Critical Care Time?: No Stability Stability form required: No Heart Score Heart Score: Heart Score Response (Comments) Value History N/A 0 EKG N/A 0 Age N/A 0 Risk Factors N/A 0 Troponin N/A 0 Total 0 I personally scribed for FAVIO MCCONNELL MD ([email or web address]) on 06/05/25 at 21:25. Electronically submitted by Zara Nagy ([facility]). FAVIO MCCONNELL MD Jun 05, 2025 21:25
== END 2025-06-05 21:30 | disposition home or self-care (01) ==
LOC: ER 14:00 → EDBD 14:00 → ER 21:30
DX: R42 Dizziness and giddiness (principal); E11.9 Type 2 diabetes mellitus without complications; I10 Essential (primary) hypertension; J44.9 Chronic obstructive pulmonary disease, unspecified; Z90.49 Acquired absence of other specified parts of digestive tract; Z79.899 Other long term (current) drug therapy
CPT/HCPCS: 93005

== ENCOUNTER 2025-06-12 01:37 | Emergency (ER) | payer OTHER ==
[~2025-06-12] VITALS: Ht 157.5 cm; Wt 109.1 kg
--- NOTE | 2025-06-12 02:02 | ED.PDOC ---
History of Present Illness HPI Comments 75 y/o F, with a history of COPD, CKD, and HTN, is BIBA from private residence for c/c of chest pain and shortness of breath. Per EMS report, patient endorses on sleeping in her bed and rolling over when she, suddenly, began experiencing symptoms, this morning. Patient then states on getting up and going to her kitchen to eat crackers and use her breathing treatment and oxygen she was, recently, placed on prior to calling EMS. Upon arrival on scene, patient had a SpO2 of 100% on her home oxygen. Additional pertinent history of previous ED visit 2x days ago for same c/c. Patient denies on having any chest pain, palpitations, cough, congestion, fever, chills, or further associated symptoms. Chief Complaint: Shortness of Breath Time Seen by MD: 01:40 Primary Care Provider: NONE Reviewed Notes: Nurses Notes, Medications, Allergies Allergies: Coded Allergies: Iodine (Verified Allergy, Unknown, 01/31/11) Penicillins (Verified Allergy, Unknown, 01/31/11) Home Meds Active Scripts Calcium Polycarbophil (Fiber) 625 Mg Tab, 625 MG PO TID for 90 Days, #270 TAB 3 Refills Prov:DENICE MCKEON MD 06/12/25 Prednisone (Prednisone) 10 Mg Tom, 10 MG PO BID for 5 Days, #10 PACK Prov:DENICE MCKEON MD 06/12/25 Albuterol Sulfate (Albuterol Sulfate Hfa) 108 Mcg/Act Aer, 108 MCG IN Q6HP PRN, #1 AER 3 Refills Prov:DENICE MCKEON MD 06/12/25 Ondansetron Odt 4MG Tab (ZOFRAN PO) 4 Mg Tb, 4 MG PO Q6HPRN PRN for 6 Days, #24 TAB ODT TAB-DISSOLVE IN MOUTH, THEN SWALLOW Prov:ALLIE EUBANKS MD 06/03/25 Prednisone (Prednisone) 10 Mg Tab, 10 MG PO DAILY for 5 Days, #5 MG Prov:TOMMY WU MD 05/29/25 Levofloxacin Hemihydrate (LEVOFLOXACIN) 500 Mg Tab, 1 TAB PO DAILY for 7 Days, #7 TAB Prov:TOMMY WU MD 05/29/25 Lactulose (Lactulose) 10 Gm/15 Ml Laura, 10 GM PO BID PRN for 30 Days, #120 ML Prov:BELINDA ZAPATA MD 05/16/25 Levofloxacin Hemihydrate (LEVAQUIN 500 MG) 500 Mg Tab, 1 TAB PO DAILY, #7 TAB Prov:BELINDA ZAPATA MD 05/16/25 Levofloxacin Hemihydrate (LEVOFLOXACIN) 500 Mg Tab, 1 TAB PO DAILY for 7 Days, #7 TAB Prov:TOMMY WU MD 05/12/25 Guaifenesin (Mucinex) 600 Mg Tab, 1 TAB PO BID PRN, #14 TAB Prov:ALEXY LOZANO MD 04/21/25 Reported Medications Atenolol (Tenormin) 50 Mg Tab, DAILY 01/31/11 Levothyroxine Sodium (Synthroid) 125 Mcg Tab 01/31/11 Metformin Hydrochloride (Glucophage) 500 Mg Tab 01/31/11 Benazepril Hcl (Benazepril Hcl) 40 Mg Tab, DAILY 01/31/11 Amlodipine Besylate (Amlodipine Besylate) 10 Mg Tab 01/31/11 Gabapentin (Neurontin) 300 Mg Cap, DAILY 01/31/11 Information Source: Patient Mode of Arrival: EMS Past Medical History PAST MEDICAL HISTORY: COPD, DM, HTN, Thyroid Surgical History: 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, 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 Family History Family History: Reviewed,noncontributory to illness Social History Smoker: Non-Smoker, Quit Greater Than 1 Year Alcohol: Occasionally Drugs: Denies Drug Use Lives In: Home All Other Systems: Reviewed and Negative (Comprehensive systems review obtained and negative except for what is stated in the HPI.) Physical Exam General Appearance: No Apparent Distress, Obese, Other (elderly appearing ) HEENT: Normal ENT Inspection, Pharynx Normal, TMs Normal Neck: Full Range of Motion, Non-Tender, Normal, Normal Inspection Respiratory: Chest Non-Tender, Lungs Clear, No Accessory Muscle Use, No Respiratory Distress, Normal Breath Sounds Cardiovascular: No Edema, No JVD, No Murmur, No Gallop, Normal Peripheral Pulses, Regular Rate/Rhythm Breast Exam: Deferred Gastrointestinal: No Organomegaly, Non Tender, No Pulsatile Mass, Normal Bowel Sounds, Soft Genitalia: Deferred Pelvic: Deferred Rectal: Deferred Extremities: No calf tenderness, Normal capillary refill, Normal inspection, Normal range of motion, Non-tender, No pedal edema Musculoskeletal : Apperance: Normal Neurologic: Alert, dixonac operator II-XII nml as Tested, No Motor Deficits, Normal Affect, Normal Mood, No Sensory Deficits Cerebellar Function: Normal Reflexes: Normal Skin: Dry, Normal Color, Warm Lymphatic: No Adenopathy Was a procedure done? Was a procedure done?: No EKG EKG : Pulse Rate (adult): 65 [place]: Normal Cardiac Rhythm: NSR Block: None Hypertrophy: None ST: Normal Differential Dx Considerations may include: acute COPD exacerbation, URI, PNA, viral syndrome, PE, [place], among others X-Ray, Labs, Meds, VS Vital Signs Date Time Temp Pulse Resp B/P (MAP) Pulse Ox O2 Delivery O2 Flow Rate FiO2 06/12/25 02:02 65 06/12/25 01:50 98.6 62 16 183/89 100 98.6 06/12/25 01:50 100 Room Air* 0 21 06/12/25 01:40 65 Lab Test 06/12/25 02:53 06/12/25 01:59 Range/Units Troponin I High Sensitivity 17 17 </=34 ng/L White Blood Count 4.2 L 4.4-10.8 10^3/uL Red Blood Count 3.97 L 4.0-5.20 10^6/uL Hemoglobin 12.3 12.2-16.2 g/dL Hematocrit 35.9 L 36.0-46.0 % Mean Corpuscular Volume 90.6 80.0-100.0 fL Mean Corpuscular Hemoglobin 30.9 28.0-32.0 pg Mean Corpuscular Hemoglobin Concent 34.2 32.0-36.0 g/dL Red Cell Distribution Width 14.3 11.8-14.3 % Platelet Count 186 140-450 10^3/uL Mean Platelet Volume 8.7 6.9-10.8 fL Neutrophils (%) (Auto) 66.3 37.0-80.0 % Lymphocytes (%) (Auto) 17.9 10.0-50.0 % Monocytes (%) (Auto) 13.1 H 0.0-12.0 % Eosinophils (%) (Auto) 2.4 0.0-7.0 % Basophils (%) (Auto) 0.3 0.0-2.0 % Neutrophils # (Auto) 2.8 1.6-8.6 10 ^3/uL Lymphocytes # (Auto) 0.8 0.4-5.4 10 ^3/uL Monocytes # (Auto) 0.6 0-1.3 10 ^3/uL Eosinophils # (Auto) 0.1 0-0.8 10 ^3/uL Basophils # (Auto) 0 0-0.2 10 ^3/uL Nucleated Red Blood Cells 0.1 % Sodium Level 141 136-145 mmol/L Potassium Level 3.8 3.5-5.1 mmol/L Chloride Level 104 98-107 mmol/L Carbon Dioxide Level 28 20-31 mmol/L Anion Gap 9 5-15 Blood Urea Nitrogen 29 H 9-23 mg/dL Creatinine 1.13 H 0.550-1.02 mg/dL Glomerular Filtration Rate Calc 50 >90 mL/min BUN/Creatinine Ratio 25.7 H 10.0-20.0 Serum Glucose 105 74-106 mg/dL Calcium Level 9.2 8.7-10.4 mg/dL Magnesium Level 2.2 1.6-2.6 mg/dL Total Bilirubin 0.5 0.2-1.0 mg/dL Aspartate Amino Transferase (AST) 25 13-40 U/L Alanine Aminotransferase (ALT) 25 7-40 U/L Alkaline Phosphatase 89 46-116 U/L B-Type Natriuretic Peptide 18.25 0-100 pg/mL Total Protein 7.3 5.7-8.2 g/dL Albumin 4.3 3.2-4.8 g/dL Current Medications Medications (Trade) Dose Ordered Sig/Nancy Route Start Time Stop Time Status Last Admin Acetaminophen (Tylenol Tablet Or Capsule) 650 mg ONCE ONCE PO 06/12/25 03:45 06/12/25 03:47 DC 06/12/25 03:56 Time of 1ST Reevaluation: 02:10 Reevaluation 1ST: Unchanged Patient Education/Counseling: Diagnosis, Treatment, Other (need for admisison ) Family Education/Counseling: No Family Present SEPSIS Sepsis Screen Physician Orders Electrocardigram (06/12/25 01:50) Troponin-I Hs (06/12/25 04:50) Chest Xray 1 View (06/12/25 01:50) Vital Signs Date Time Temp Pulse Resp B/P (MAP) Pulse Ox O2 Delivery O2 Flow Rate FiO2 06/12/25 02:02 65 06/12/25 01:50 98.6 62 16 183/89 100 98.6 06/12/25 01:50 100 Room Air* 0 21 06/12/25 01:40 65 Laboratory Tests Test 06/12/25 01:59 White Blood Count 4.2 10^3/uL (4.4-10.8) L Medications Medications Dose Ordered Sig/Nancy Route Start Time Stop Time Status Last Admin Dose Admin Acetaminophen 650 mg ONCE ONCE PO 06/12/25 03:45 06/12/25 03:47 DC 06/12/25 03:56 Departure 1 Departure Time of Disposition: 04:15 Impression: Primary Impression: COPD exacerbation Disposition: HOME / SELF CARE / HOMELESS Condition: Stable e-Prescriptions Calcium Polycarbophil (Fiber) 625 Mg Tab 625 MG PO TID for 90 Days, #270 TAB 3 Refills Prov: DENICE MCKEON MD 06/12/25 Prednisone (Prednisone) 10 Mg Tom 10 MG PO BID for 5 Days, #10 PACK Prov: DENICE MCKEON MD 06/12/25 Albuterol Sulfate (Albuterol Sulfate Hfa) 108 Mcg/Act Aer 108 MCG IN Q6HP PRN, #1 AER 3 Refills Prov: DENICE MCKEON MD 06/12/25 Discharged With: Self Critical Care Note Critical Care Time?: No Stability Stability form required: No Heart Score Heart Score: Heart Score Response (Comments) Value History Moderate Suspicious 1 EKG Normal 0 Age >65 2 Risk Factors >3 or Hx ASHD 2 Troponin Normal limit 0 Total 5 I personally scribed for DENICE MCKEON MD ([email or web address]) on 06/12/25 at 02:02. Electronically submitted by Javier Giordano [email or web address]). DENICE MCKEON MD Jun 12, 2025 02:02
[2025-06-12 02:38] LABS: Alanine Aminotransferase 25 U/L (7-40); Albumin 4.3 g/dL (3.2-4.8); Alkaline Phosphatase 89 U/L (46-116); Anion Gap 9 (5-15); BUN/Creatinine Ratio 25.7 (10.0-20.0); Bilirubin, Total 0.5 mg/dL (0.2-1.0); Calcium 9.2 mg/dL (8.7-10.4); Carbon Dioxide 28 mmol/L (20-31); Chloride 104 mmol/L (98-107); Glucose 105 mg/dL (74-106); Magnesium 2.2 mg/dL (1.6-2.6); Potassium 3.8 mmol/L (3.5-5.1); Sodium 141 mmol/L (136-145); Total Protein 7.3 g/dL (5.7-8.2)
[2025-06-12 02:42] LABS: Blood Urea Nitrogen 29 mg/dL (9-23)
[2025-06-12 02:46] LABS: Hematocrit 35.9 % (36.0-46.0); Hemoglobin 12.3 g/dL (12.2-16.2); Mean Corpuscular Hemoglobin 30.9 pg (28.0-32.0); Mean Corpuscular Volume 90.6 fL (80.0-100.0); Nucleated Red Blood Cells % 0.1 %
--- NOTE | 2025-06-12 03:34 | DVH ---
CHEST RADIOGRAPH Indication: SOB Technique: Single frontal view of the chest was obtained COMPARISON: XY CHEST PORTABLE on DOS: 05/29/25, XY CHEST PORTABLE on DOS: 05/12/25, XY CHEST PORTABLE on DOS: 04/21/25 FINDINGS: Lines and Tubes: None Lungs: Clear Pleura: No effusion. No pneumothorax. Cardiomediastinal contours: Cardiomegaly. Bones: Unremarkable IMPRESSION: 1. Cardiomegaly.
[2025-06-12] MEDS ORDERED: ALBU108A5 IN (03:49)
[2025-06-12] MEDS ORDERED: PRED1PAK9 PO (03:49)
[2025-06-12 03:50] VITALS: BP 157/78; PULSE 65; RESP 18; TEMP 98.4; O2SAT 93
[2025-06-12] MEDS: ACETAMINOPHEN 500 MG TAB or CAP PO ONE (03:56)
[2025-06-12] MEDS ORDERED: CALC625T35 PO (04:02)
[2025-06-12] MEDS: ONDANSETRON ODT 4 MG TAB PO ONE (05:01)
--- NOTE | 2025-06-13 10:32 | ECG ---
[facility] Test Date: 2025-06-12 Test Time: 01:40:59 Pat Name: JEY COX Department: Room: Gender: F Interventional Radiology Technologist: DEMETRIO : 1950 Requested By: DENICE MCKEON Order Number: [id number] Reading MD: Gilberto Godoy Measurements Intervals [place] Rate: 65 P: 24 DC: 164 QRS: -58 QRSD: 87 T: 52 QT: 402 QTc: 418 Interpretive Statements Sinus rhythm Consider left atrial enlargement Left anterior fascicular block Abnormal R-wave progression, late transition Left ventricular hypertrophy Electronically Signed On 06-15-2025 15:03:32 PDT by Gilberto Godoy Please click the below link to view image of tracing.
== END 2025-06-12 04:00 | disposition home or self-care (01) ==
LOC: EDBD 01:37 → ER 01:37
DX: J44.1 Chronic obstructive pulmonary disease with (acute) exacerbation (principal); I10 Essential (primary) hypertension; E11.9 Type 2 diabetes mellitus without complications; E03.9 Hypothyroidism, unspecified; Z79.899 Other long term (current) drug therapy; Z90.49 Acquired absence of other specified parts of digestive tract; Z88.0 Allergy status to penicillin; Z88.8 Allergy status to other drugs, medicaments and biological substances
CPT/HCPCS: 36415; 71045; 80053; 83735; 83880; 84484; 85025; 93005; 99285; Q0162

== ENCOUNTER 2025-06-20 18:29 | Emergency (ER) | payer OTHER ==
[~2025-06-20] VITALS: Ht 165.1 cm; Wt 100.0 kg
[~2025-06-20 18:29] MED LIST changes: +ALBU108A5 IN; +CALC625T35 PO; +PRED1PAK9 PO
[2025-06-20 18:32] VITALS: BP 156/74; RESP 20; TEMP 98.3; O2SAT 98
[2025-06-20 18:46] VITALS: PULSE 73
--- NOTE | 2025-06-20 18:47 | ECG ---
[facility] Test Date: 2025-06-20 Test Time: 18:46:14 Pat Name: JEY COX Department: Room: Gender: F Technical Sales Engineer: GP : 1950 Requested By: ALEXY FU Order Number: [id number] Reading MD: Measurements Intervals [place] Rate: 73 P: 21 KS: 157 QRS: -58 QRSD: 96 T: 73 QT: 375 QTc: 414 Interpretive Statements Sinus rhythm Multiple premature complexes, vent & supraven Left anterior fascicular block Left ventricular hypertrophy Anterior Q waves, possibly due to LVH Please click the below link to view image of tracing.
[2025-06-20 20:08] LABS: Hematocrit 35.8 % (36.0-46.0); Hemoglobin 12.2 g/dL (12.2-16.2); Mean Corpuscular Hemoglobin 30.7 pg (28.0-32.0); Mean Corpuscular Volume 90.6 fL (80.0-100.0); Nucleated Red Blood Cells % 0.1 %
[2025-06-20 20:24] LABS: Alanine Aminotransferase 28 U/L (7-40); Alkaline Phosphatase 105 U/L (46-116); Anion Gap 9 (5-15); BUN/Creatinine Ratio 21.1 (10.0-20.0); Calcium 9.2 mg/dL (8.7-10.4); Carbon Dioxide 27 mmol/L (20-31); Chloride 101 mmol/L (98-107); Glucose 102 mg/dL (74-106); Lipase 49 U/L (12-53); Sodium 137 mmol/L (136-145); Total Protein 6.9 g/dL (5.7-8.2)
[2025-06-20 20:25] LABS: Albumin 4.2 g/dL (3.2-4.8); Bilirubin, Total 0.6 mg/dL (0.2-1.0)
[2025-06-20 20:30] LABS: Blood Urea Nitrogen 24 mg/dL (9-23); Potassium 3.4 mmol/L (3.5-5.1)
--- NOTE | 2025-06-20 20:31 | DVH ---
COMPUTERIZED TOMOGRAPHY ABDOMEN AND PELVIS WITHOUT CONTRAST REASON FOR EXAM: Nausea/vomiting. Flank pain. COMPARISON: CT CT AB PEL WO CON-NO ORAL OR IV on DOS: 05/16/25 TECHNIQUE: Spiral scans were acquired from the diaphragm to the symphysis pubis without intravenous c ontrast administration. 2-D coronal and sagittal reformatted images were provided. Radiation optimiza tion: All CT scans at this facility use at least one of these dose optimization techniques: Automated exposure control mA and/or kV adjustment per patient size (includes targeted exams where dose is mat ched to clinical indication) or iterative reconstruction. RADIATION DOSE: CTDI: 17 mGy DLP: 978 mGy-cm FINDINGS: There is minimal dependent atelectasis in bilateral lower lobes of the lungs. There is no pleural ef fusion. There is no pericardial effusion. There are coronary artery calcifications. There is a small hiatal hernia. The spleen is not enlarged. The liver is normal in size and contour. No calcified gallstone is identi fied. Evaluation of the abdominal organs is suboptimal in the absence of intravenous contrast. Unenha nced appearance of the pancreas is grossly unremarkable. There is mild fullness of bilateral adrenal glands statistically likely representing benign adenomata, unchanged. The kidneys are similar in siz e. There is no hydronephrosis of either kidney. There is no renal, ureteral, or bladder calculus iden tified. The urinary bladder is unremarkable. There are several calcified uterine fibroids. The ovari es are not definitely seen. There is no free fluid in the abdomen or pelvis. No pathologic lymphadeno contreras is identified by size criteria. There is no abdominal aortic aneurysm. The colonic stool burden is small. The appendix is not seen. There is no inflammatory stranding about the cecum to suggest a cute appendicitis. There is no pathologic distention of the small bowel to suggest obstruction. No ac raheem osseous abnormality is identified. IMPRESSION: No renal, ureteral, or bladder calculus is identified. No hydronephrosis of either kidney. Fibroid uterus No evidence of small-bowel obstruction.
--- NOTE | 2025-06-20 22:06 | ED.PDOC ---
GI ASSESSMENT HPI Comments HPI: This is a 75 year-old female who presents to the ED via wheelchair with a chief complaint of N and constipation as of today. Patient reports not wanting to come to the ED, but being forced to by her son. Patient reports a bowel movement around 21:30 while waiting in the ED. Patient has no further complaints or modifiers at this time. Patient otherwise denies chest pain, SOB, emesis, fever, or chills. Patient's history he has been constipated. Patient states that she had some nausea because she did not get the medicine at home soon enough. Denies any pain anywhere in her body. She is in no acute distress. Patient had no nausea or vomiting here in the ED. Past Medical History:COPD, DM, Kidney Failure Past Surgical History: Unknown Social History: Denies ETOH, smoking, and drug use. Medications: Unknown Allergies: Iodine, Penicillin HPI: Poor Historian. REVIEW OF SYSTEMS: CONSTITUTIONAL: Denies acute: fever, diaphoresis, chills, generalized weakness. HEAD: Denies acute: headache, photophobia Eyes: Denies acute: Double vision, vision loss, eye pain, eye discharge. EARS: Denies acute: tinnitus, hearing loss, ear discharge, ear pain, THROAT: Denies acute: sore throat, swelling, difficulty swallowing , pain with swallowing, change in voice. NECK: Denies acute: neck pain, neck swelling, stiff neck. HEART: Denies acute : chest pain, palpitations, LUNGS: Denies acute: SOB, wheezing, cough, hemoptysis ABDOMEN: Denies acute: abdominal pain, diarrhea, melena , hematemesis, hematochezia SKIN: Denies acute: rash, redness, lesions, itchiness. EXTREMITIES: Denies acute: calf pain, numbness, tingling, weakness, denies pain in extremity. Denies acute: Low back pain. Neuro: Denies acute: focal neurological deficit, motor or sensory focal neurological deficit, tremors, seizure like activity, confusion, dizziness, change in mental status, loss of bowel or bladder function, cauda equina like symptoms. : Denies acute: dysuria, hematuria, flank pain, increase in urinary frequency. PSYCH: Denies acute: hallucination, suicidal ideation, homicidal ideation. FEMALE: Denies acute: abnormal vaginal bleeding, foul odor, unusual discharge. PHYSICAL EXAM: General: ------no--acute distress, awake and alert. Head: normocephalic, atraumatic. Neck: supple, trachea is midline, no swelling. Throat: Normal phonation. Eyes:, no erythema, no purulent discharge, no proptosis, no icterus. Heart: regular rate, regular rhythm, no significant murmur appreciated. Lungs: no apparent respiratory distress, Able to speak in full sentences. No wheezing, no rhonchi, no crackles. No stridors Clear to auscultation bilaterally. Abdomen: non tender to palpation, non distended, soft, no guarding, no rebound, + bowel sounds. Neuro: Awake, Alert, oriented to name, self, situation, follows commands GCS=15. Speech is normal. Skin: no petechia, no purpura, no cyanosis, non-pale, not jaundice. Lower extremities: --no - Pitting edema no deformity, no focal swelling, no calf TTP. Makes eye contact. moves all four extremities. Face: no apparent facial droop. No CVA tenderness to percussion bilaterally. ED COURSE: DISCLAIMER: This medical document was created using an electronic medical record system with voice recognition software and computerized dictation system. Although this document has been carefully reviewed, there might still be some phonetic and typographical errors. Occasional wrong-word or "sound-alike" substitutions may have occurred due to the inherent limitations of voice recognition software. These areas are purely typographical due to imperfections of the software programs and do not reflect any compromise in the patient's medical care. Please read the chart carefully and recognize, using context, where these substitutions have occurred. Chief Complaint: Nausea/Vomiting Time Seen by MD: 21:59 Primary Care Provider: NONE Reviewed Notes: Nurses Notes, Medications, Allergies Allergies: Coded Allergies: Iodine (Verified Allergy, Unknown, 01/31/11) Penicillins (Verified Allergy, Unknown, 01/31/11) Home Meds Active Scripts Calcium Polycarbophil (Fiber) 625 Mg Tab, 625 MG PO TID for 90 Days, #270 TAB 3 Refills Prov:DENICE MCKEON MD 06/12/25 Prednisone (Prednisone) 10 Mg Tom, 10 MG PO BID for 5 Days, #10 PACK Prov:DENICE MCKEON MD 06/12/25 Albuterol Sulfate (Albuterol Sulfate Hfa) 108 Mcg/Act Aer, 108 MCG IN Q6HP PRN, #1 AER 3 Refills Prov:DENICE MCKEON MD 06/12/25 Ondansetron Odt 4MG Tab (ZOFRAN PO) 4 Mg Tb, 4 MG PO Q6HPRN PRN for 6 Days, #24 TAB ODT TAB-DISSOLVE IN MOUTH, THEN SWALLOW Prov:ALLIE EUBANKS MD 06/03/25 Prednisone (Prednisone) 10 Mg Tab, 10 MG PO DAILY for 5 Days, #5 MG Prov:TOMMY WU MD 05/29/25 Levofloxacin Hemihydrate (LEVOFLOXACIN) 500 Mg Tab, 1 TAB PO DAILY for 7 Days, #7 TAB Prov:TOMMY WU MD 05/29/25 Lactulose (Lactulose) 10 Gm/15 Ml Laura, 10 GM PO BID PRN for 30 Days, #120 ML Prov:BELINDA ZAPATA MD 05/16/25 Levofloxacin Hemihydrate (LEVAQUIN 500 MG) 500 Mg Tab, 1 TAB PO DAILY, #7 TAB Prov:BELINDA ZAPATA MD 05/16/25 Levofloxacin Hemihydrate (LEVOFLOXACIN) 500 Mg Tab, 1 TAB PO DAILY for 7 Days, #7 TAB Prov:TOMMY WU MD 05/12/25 Guaifenesin (Mucinex) 600 Mg Tab, 1 TAB PO BID PRN, #14 TAB Prov:ALEXY LOZANO MD 04/21/25 Reported Medications Atenolol (Tenormin) 50 Mg Tab, DAILY 01/31/11 Levothyroxine Sodium (Synthroid) 125 Mcg Tab 01/31/11 Metformin Hydrochloride (Glucophage) 500 Mg Tab 01/31/11 Benazepril Hcl (Benazepril Hcl) 40 Mg Tab, DAILY 01/31/11 Amlodipine Besylate (Amlodipine Besylate) 10 Mg Tab 01/31/11 Gabapentin (Neurontin) 300 Mg Cap, DAILY 01/31/11 Information Source: Patient Mode of Arrival: EMS Timing: Hours Duration: Since onset Prehospital treatment: None Severity: Mild Associated sign and symptoms: Nausea, Constipation Was a procedure done? Was a procedure done?: No GI differential Dx Differential Diagnosis: Constipation, Gastroenteritis, Dehydration, Bacterial, Parasitic, Viral X-Ray, Labs, Meds, VS Vital Signs Date Time Temp Pulse Resp B/P (MAP) Pulse Ox O2 Delivery O2 Flow Rate FiO2 06/20/25 18:46 73 06/20/25 18:32 98.3 72 20 156/74 98 98.3 Lab Test 06/20/25 20:41 06/20/25 19:47 Range/Units Troponin I High Sensitivity 24 23 </=34 ng/L White Blood Count 3.9 L 4.4-10.8 10^3/uL Red Blood Count 3.95 L 4.0-5.20 10^6/uL Hemoglobin 12.2 12.2-16.2 g/dL Hematocrit 35.8 L 36.0-46.0 % Mean Corpuscular Volume 90.6 80.0-100.0 fL Mean Corpuscular Hemoglobin 30.7 28.0-32.0 pg Mean Corpuscular Hemoglobin Concent 33.9 32.0-36.0 g/dL Red Cell Distribution Width 14.4 H 11.8-14.3 % Platelet Count 197 140-450 10^3/uL Mean Platelet Volume 8.4 6.9-10.8 fL Neutrophils (%) (Auto) 66.4 37.0-80.0 % Lymphocytes (%) (Auto) 17.9 10.0-50.0 % Monocytes (%) (Auto) 12.8 H 0.0-12.0 % Eosinophils (%) (Auto) 2.6 0.0-7.0 % Basophils (%) (Auto) 0.3 0.0-2.0 % Neutrophils # (Auto) 2.6 1.6-8.6 10 ^3/uL Lymphocytes # (Auto) 0.7 0.4-5.4 10 ^3/uL Monocytes # (Auto) 0.5 0-1.3 10 ^3/uL Eosinophils # (Auto) 0.1 0-0.8 10 ^3/uL Basophils # (Auto) 0 0-0.2 10 ^3/uL Nucleated Red Blood Cells 0.1 % Sodium Level 137 136-145 mmol/L Potassium Level 3.4 L 3.5-5.1 mmol/L Chloride Level 101 98-107 mmol/L Carbon Dioxide Level 27 20-31 mmol/L Anion Gap 9 5-15 Blood Urea Nitrogen 24 H 9-23 mg/dL Creatinine 1.14 H 0.550-1.02 mg/dL Glomerular Filtration Rate Calc 50 >90 mL/min BUN/Creatinine Ratio 21.1 H 10.0-20.0 Serum Glucose 102 74-106 mg/dL Lactic Acid Level 1.0 0.4-2.0 mmol/L Calcium Level 9.2 8.7-10.4 mg/dL Total Bilirubin 0.6 0.2-1.0 mg/dL Aspartate Amino Transferase (AST) 31 13-40 U/L Alanine Aminotransferase (ALT) 28 7-40 U/L Alkaline Phosphatase 105 46-116 U/L Total Protein 6.9 5.7-8.2 g/dL Albumin 4.2 3.2-4.8 g/dL Lipase 49 12-53 U/L [place] [address] Ph: [phone] DIAGNOSTIC IMAGING Diagnostic Imaging Report : [id number] Signed PATIENT: JEY COX MACCT: [id number] UNIT: [id number] : 1950 LOC: ER ROOM / BED: / AGE / SEX: 75 / F ADM STATUS: REG ER SERVICE 28 ORDERING PHYSICIAN: REYES CASTRO DO PROCEDURE(s): ABPL - CT AB PEL WO CON-NO ORAL OR IV REASON: n/v Flank pain ORDER NUMBER(s): [id number], ACCESSION NUMBER(s): [id number] COMPUTERIZED TOMOGRAPHY ABDOMEN AND PELVIS WITHOUT CONTRAST REASON FOR EXAM: Nausea/vomiting. Flank pain. COMPARISON: CT CT AB PEL WO CON-NO ORAL OR IV on DOS: 05/16/25 TECHNIQUE: Spiral scans were acquired from the diaphragm to the symphysis pubis without intravenous contrast administration. 2-D coronal and sagittal reformatted images were provided. Radiation optimization: All CT scans at this facility use at least one of these dose optimization techniques: Automated exposure control mA and/or kV adjustment per patient size (includes targeted exams where dose is matched to clinical indication) or iterative reconstruction. RADIATION DOSE: CTDI: 17 mGy DLP: 978 mGy-cm FINDINGS: There is minimal dependent atelectasis in bilateral lower lobes of the lungs. There is no pleural effusion. There is no pericardial effusion. There are coronary artery calcifications. There is a small hiatal hernia. The spleen is not enlarged. The liver is normal in size and contour. No calcified gallstone is identified. Evaluation of the abdominal organs is suboptimal in the absence of intravenous contrast. Unenhanced appearance of the pancreas is grossly unremarkable. There is mild fullness of bilateral adrenal glands statistically likely representing benign adenomata, unchanged. The k idneys are similar in size. There is no hydronephrosis of either kidney. There is no renal, ureteral, or bladder calculus identified. The urinary bladder is unremarkable. There are several calcified uterine fibroids. The ovaries are not definitely seen. There is no free fluid in the abdomen or pelvis. No pathologic lymphadenopathy is identified by size criteria. There is no abdominal aortic aneurysm. The colonic stool burden is small. The appendix is not seen. There is no inflammatory stranding about the cecum to suggest acute appendicitis. There is no pathologic distention of the small bowel to suggest obstruction. No acute osseous abnormality is identified. IMPRESSION: No renal, ureteral, or bladder calculus is identified. No hydronephrosis of either kidney. Fibroid uterus No evidence of small-bowel obstruction. ATED BY: ROMULO BERNARD MD DICTATED DATE/TIME: 06/20/252027 SIGNED BY: ROMULO BERNARD MD SIGNED DATE/TIME: 06/20/252027 CC: Images Reviewed?: Images reviewed and evaluated by me Time of 1ST Reevaluation: 22:07 Reevaluation 1ST: Unchanged Patient Education/Counseling: Diagnosis, Treatment Family Education/Counseling: No Family Present Medical Screening: No EMC Exist At This Time SEPSIS Sepsis Screen Date sepsis recognized/suspect: Jun 20, 2025 Time Sepsis recognized/suspect: 1831 Recent Procedure: No On Antibiotic Therapy: No Respiratory Rate >20: No Heart Rate >90: No Temp<36 C (96.8 F) or >38.3 C: No SBP <90 or MAP <65 mmHG: No New Acute Mental Status Change: No Is the patient on CPAP, BIPAP,: No Physician Orders [employer] (06/20/25 ) Urinalysis (06/20/25 19:29) Ct Ab Pel Wo Con-No Oral Or Iv (06/20/25 19:29) Vital Signs Date Time Temp Pulse Resp B/P (MAP) Pulse Ox O2 Delivery O2 Flow Rate FiO2 06/20/25 18:46 73 06/20/25 18:32 98.3 72 20 156/74 98 98.3 Laboratory Tests Test 06/20/25 19:47 Lactic Acid Level 1.0 mmol/L (0.4-2.0) White Blood Count 3.9 10^3/uL (4.4-10.8) L Departure 1 Departure Time of Disposition: 22:24 Impression: Primary Impression: Nausea Disposition: 01 HOME / SELF CARE / HOMELESS Condition: Stable Additional Instructions: Additional instructions: Please read all instructions provided in this packet carefully. You MUST follow-up with your primary care/family doctor in 1 to 2 days. If you are unable to see your primary care/family doctor, please return to our emergency room for re-assessment and re-evaluation in 1 to 2 days. Return to the emergency room here in our facility or to the nearest ER [facility] if your symptoms change or worsen. CONSULTATIONS: you MUST Follow-up for consultation as soon as possible with: -gastroenterology and cardiology in 1-2 days. Please call for appointment. You MUST call the consultants office yourself to make an appointment. You may need to arrange that through your insurance and/or your primary/family doctor. If you are unable to see the valuation consultant in 1 to 2 days, you must return to our emergency room (or any other ER of your choice) for re-assessment and re- evaluation. Adequate fluid hydration. Although you have been discharged from the Emergency Department, this does not mean that you have a "clean bill of health". No definitive diagnosis for your symptoms has been made today. It is possible that you are in the process of developing a serious illness. This is why you must return to the ED without fail if any new or worsening symptoms develop. Increase fiber intake. Below is a copy of your radiological report for follow up: [address] [address] Ph: [phone] DIAGNOSTIC IMAGING Diagnostic Imaging Report : [id number] Signed PATIENT: JEY COX ACCT: [id number] UNIT: [id number] : 1950 LOC: ER ROOM / BED: / AGE / SEX: 75 / F ADM STATUS: REG ER SERVICE 28 ORDERING PHYSICIAN: REYES CASTRO DO PROCEDURE(s): ABPL - CT AB PEL WO CON-NO ORAL OR IV REASON: n/v Flank pain ORDER NUMBER(s): [id number], ACCESSION NUMBER(s): [id number] COMPUTERIZED TOMOGRAPHY ABDOMEN AND PELVIS WITHOUT CONTRAST REASON FOR EXAM: Nausea/vomiting. Flank pain. COMPARISON: CT CT AB PEL WO CON-NO ORAL OR IV on DOS: 05/16/25 TECHNIQUE: Spiral scans were acquired from the diaphragm to the symphysis pubis without intravenous contrast administration. 2-D coronal and sagittal reformatted images were provided. Radiation optimization: All CT scans at this facility use at least one of these dose optimization techniques: Automated exposure control mA and/or kV adjustment per patient size (includes targeted exams where dose is matched to clinical indication) or iterative reconstruction. RADIATION DOSE: CTDI: 17 mGy DLP: 978 mGy-cm FINDINGS: There is minimal dependent atelectasis in bilateral lower lobes of the lungs. There is no pleural effusion. There is no pericardial effusion. There are coronary artery calcifications. There is a small hiatal hernia. The spleen is not enlarged. The liver is normal in size and contour. No calcified gallstone is identified. Evaluation of the abdominal organs is suboptimal in the absence of intravenous contrast. Unenhanced appearance of the pancreas is grossly unremarkable. There is mild fullness of bilateral adrenal glands statistically likely representing benign adenomata, unchanged. The kidneys are similar in size. There is no hydronephrosis of either kidney. There is no renal, ureteral, or bladder calculus identified. The urinary bladder is unremarkable. There are several calcified uterine fibroids. The ovaries are not definitely seen. There is no free fluid in the abdomen or pelvis. No pathologic lymphadenopathy is identified by size criteria. There is no abdominal aortic aneurysm. The colonic stool burden is small. The appendix is not seen. There is no inflammatory stranding about the cecum to suggest acute appendicitis. There is no pathologic distention of the small bowel to suggest obstruction. No acute osseous abnormality is identified. IMPRESSION: No renal, ureteral, or bladder calculus is identified. No hydronephrosis of either kidney. Fibroid uterus No evidence of small-bowel obstruction. ATED BY: ROMULO BERNARD MD DICTATED DATE/TIME: 06/20/252027 SIGNED BY: ROMULO BERNARD MD SIGNED DATE/TIME: 06/20/252027 CC: Discharged With: Self, Relative Critical Care Note Critical Care Time?: No I personally scribed for REYES CASTRO DO ([email or web address]) on 06/20/25 at 22:06. Electronically submitted by Kimberlee Turner ([email or web address]). I personally scribed for REYES CASTRO DO ([email or web address]) on 06/20/25 at 22:08. Electron ically submitted by Kimberlee Turner ([email or web address]). REYES CASTRO DO Jun 20, 2025 22:06
== END 2025-06-20 23:23 | disposition home or self-care (01) ==
LOC: ER 18:29 → EDBD 18:29 → ER 23:23
DX: K59.00 Constipation, unspecified (principal); R11.0 Nausea; E11.9 Type 2 diabetes mellitus without complications; J44.9 Chronic obstructive pulmonary disease, unspecified; Z79.899 Other long term (current) drug therapy; Z88.0 Allergy status to penicillin; Z88.8 Allergy status to other drugs, medicaments and biological substances
CPT/HCPCS: 36415; 74176; 80053; 83605; 83690; 84484; 85025; 93005

== ENCOUNTER 2025-07-06 14:29 | Emergency (ER) | payer OTHER ==
[~2025-07-06] VITALS: Ht 157.5 cm; Wt 86.5 kg
--- NOTE | 2025-07-06 14:46 | ED.PDOC ---
History of Present Illness HPI Comments 75 y/o F, with PMHx of COPD, DM, and HTN presents to the ED for CC of generalized weakness. EMS reports, patient is coming from home where family called d/t patient becoming increasingly weak x1day. Per EMS, primary point of care technician reports, that patient has now been unable to ambulate. Upon arrival to the ED, patient appears drowsy, lethargic, and pleasantly confused. No other symptoms or modifying factors are present at this time. Chief Complaint: General Weakness Time Seen by MD: 14:40 Primary Care Provider: NONE Reviewed Notes: Nurses Notes, Jig Grinder Set Up Operator Notes, Medications, Allergies Allergies: Coded Allergies: Iodine (Verified Allergy, Unknown, 01/31/11) Penicillins (Verified Allergy, Unknown, 01/31/11) Home Meds Active Scripts Calcium Polycarbophil (Fiber) 625 Mg Tab, 625 MG PO TID for 90 Days, #270 TAB 3 Refills Prov:DENICE MCKEON MD 06/12/25 Prednisone (Prednisone) 10 Mg Tom, 10 MG PO BID for 5 Days, #10 PACK Prov:DENICE MCKEON MD 06/12/25 Albuterol Sulfate (Albuterol Sulfate Hfa) 108 Mcg/Act Aer, 108 MCG IN Q6HP PRN, #1 AER 3 Refills Prov:DENICE MCKEON MD 06/12/25 Ondansetron Odt 4MG Tab (ZOFRAN PO) 4 Mg Tb, 4 MG PO Q6HPRN PRN for 6 Days, #24 TAB ODT TAB-DISSOLVE IN MOUTH, THEN SWALLOW Prov:ALLIE EUBANKS MD 06/03/25 Prednisone (Prednisone) 10 Mg Tab, 10 MG PO DAILY for 5 Days, #5 MG Prov:TOMMY WU MD 05/29/25 Levofloxacin Hemihydrate (LEVOFLOXACIN) 500 Mg Tab, 1 TAB PO DAILY for 7 Days, #7 TAB Prov:TOMMY WU MD 05/29/25 Lactulose (Lactulose) 10 Gm/15 Ml Laura, 10 GM PO BID PRN for 30 Days, #120 ML Prov:BELINDA ZAPATA MD 05/16/25 Levofloxacin Hemihydrate (LEVAQUIN 500 MG) 500 Mg Tab, 1 TAB PO DAILY, #7 TAB Prov:BELINDA ZAPATA MD 05/16/25 Levofloxacin Hemihydrate (LEVOFLOXACIN) 500 Mg Tab, 1 TAB PO DAILY for 7 Days, #7 TAB Prov:TOMMY WU MD 05/12/25 Guaifenesin (Mucinex) 600 Mg Tab, 1 TAB PO BID PRN, #14 TAB Prov:ALEXY LOZANO MD 04/21/25 Reported Medications Atenolol (Tenormin) 50 Mg Tab, DAILY 01/31/11 Levothyroxine Sodium (Synthroid) 125 Mcg Tab 01/31/11 Metformin Hydrochloride (Glucophage) 500 Mg Tab 01/31/11 Benazepril Hcl (Benazepril Hcl) 40 Mg Tab, DAILY 01/31/11 Amlodipine Besylate (Amlodipine Besylate) 10 Mg Tab 01/31/11 Gabapentin (Neurontin) 300 Mg Cap, DAILY 01/31/11 Information Source: Patient, Emergency Med Personnel Mode of Arrival: EMS Severity: Moderate Timing: Days Duration: Since onset Prehospital treatment: None Past Medical History PAST MEDICAL HISTORY: COPD, DM, HTN, Thyroid Surgical History: 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, LEARNING SUPPORT SPECIALIST History: Denies all LEARNING SUPPORT SPECIALIST Hx Family History Family History: Reviewed,noncontributory to illness Social History Smoker: Non-Smoker, Quit Greater Than 1 Year Alcohol: Occasionally Drugs: Denies Drug Use Lives In: Home Constitutional: reports: weakness; denies: chills, diaphoresis, fatigue, fever, malaise, sweats, others EENTM: denies: blurred vision, double vision, ear bleeding, ear discharge, ear drainage, ear pain, ear ringing, eye pain, eye redness, hearing loss, mouth pain, mouth swelling, nasal discharge, nose bleeding, nose congestion, nose pain, photophobia, tearing, throat pain, throat swelling, voice changes, others Respiratory: denies: cough, hemoptysis, orthopnea, SOB at rest, shortness of breath, SOB with excertion, stridor, wheezing, others Cardiovascular: denies: chest pain, dizzy spells, diaphoresis, Dyspnea on exertion, edema, irregular heart beat, left arm pain, lightheadedness, palpitations, PND, syncope, others Gastrointestinal: denies: abdomen distended, abdominal pain, blood streaked bowels, constipated, diarrhea, dysphagia, difficulty swallowing, hematemesis, melena, nausea, poor appetite, poor fluid intake, rectal bleeding, rectal pain, vomiting, others Genitourinary: denies: abnormal vagina bleeding, burning, dyspareunia, dysuria, flank pain, frequency, hematuria, incontinence, pain, , vagina discharge, urgency, others Neurological: denies: dizziness, fainting, headache, left sided numbness, left sided weakness, numbness, paresthesia, pre-existing deficit, right sided numbness, right sided weakness, seizure, speech problems, tingling, tremors, weakness, others Musculoskeletal: denies: back pain, gout, joint pain, joint swelling, muscle pain, muscle stiffness, neck pain, others Integumetry: denies: bruises, change in color, change in hair/nails, dryness, laceration, lesions, lumps, rash, wounds, others Allergic/Immunocompromised: denies: Difficulty Healing, Frequent Infections, Hives, Itching, others Hematologic/Lymphatic: denies: anemia, blood clots, easy bleeding, easy bruising, swollen glands, others Endocrine: denies: excessive hunger, excessive sweating, excessive thirst, excessive urination, flushing, intolerance to cold, intolerance to heat, unexplained weight gain, unexplained weight loss, others Psychiatric: denies: anxiety, bipolar disorder, depression, hopeless, panic disorder, schizophrenia, sleepless, suicidal, others All Other Systems: Reviewed and Negative Physical Exam General Appearance: No Apparent Distress, Normal HEENT: Normal ENT Inspection, Pharynx Normal, TMs Normal Neck: Full Range of Motion, Non-Tender, Normal, Normal Inspection Respiratory: Chest Non-Tender, Lungs Clear, No Accessory Muscle Use, No Respiratory Distress, Normal Breath Sounds Cardiovascular: No Edema, No Murmur, No Gallop, Normal Peripheral Pulses, Regular Rate/Rhythm Breast Exam: Deferred Gastrointestinal: No Organomegaly, Non Tender, No Pulsatile Mass, Normal Bowel Sounds, Soft Genitalia: Deferred Pelvic: Deferred Rectal: Deferred Extremities: No calf tenderness, Normal capillary refill, Normal inspection, Normal range of motion, Non-tender, No pedal edema Musculoskeletal : Apperance: Normal Neurologic: contractor general engineering II-XII nml as Tested, No Motor Deficits, Normal Affect, Normal Mood, No Sensory Deficits, Other (pleasantly confused) Cerebellar Function: Normal Reflexes: Normal Skin: Dry, Normal Color, Warm Lymphatic: No Adenopathy Was a procedure done? Was a procedure done?: No Differential Dx Considerations may include: hypotension, hypoglycemia, UTI, X-Ray, Labs, Meds, VS Vital Signs Date Time Temp Pulse Resp B/P (MAP) Pulse Ox O2 Delivery O2 Flow Rate FiO2 07/06/25 15:11 97.5 78 17 144/62 (89) 96 97.5 07/06/25 14:50 80 07/06/25 14:29 98.7 86 16 133/74 97 98.7 Lab Test 07/06/25 15:23 07/06/25 14:42 Range/Units White Blood Count 5.4 4.4-10.8 10^3/uL Red Blood Count 4.24 4.0-5.20 10^6/uL Hemoglobin 12.9 12.2-16.2 g/dL Hematocrit 38.2 36.0-46.0 % Mean Corpuscular Volume 90.2 80.0-100.0 fL Mean Corpuscular Hemoglobin 30.5 28.0-32.0 pg Mean Corpuscular Hemoglobin Concent 33.8 32.0-36.0 g/dL Red Cell Distribution Width 13.6 11.8-14.3 % Platelet Count 207 140-450 10^3/uL Mean Platelet Volume 8.3 6.9-10.8 fL Neutrophils (%) (Auto) 80.7 H 37.0-80.0 % Lymphocytes (%) (Auto) 7.7 L 10.0-50.0 % Monocytes (%) (Auto) 10.1 0.0-12.0 % Eosinophils (%) (Auto) 1.1 0.0-7.0 % Basophils (%) (Auto) 0.4 0.0-2.0 % Neutrophils # (Auto) 4.4 1.6-8.6 10 ^3/uL Lymphocytes # (Auto) 0.4 0.4-5.4 10 ^3/uL Monocytes # (Auto) 0.5 0-1.3 10 ^3/uL Eosinophils # (Auto) 0.1 0-0.8 10 ^3/uL Basophils # (Auto) 0 0-0.2 10 ^3/uL Nucleated Red Blood Cells 0.0 % Prothrombin Time 12.1 H 9.3-11.8 sec Prothrombin Time INR 1.16 H 0.9-1.15 Activated Partial Thromboplast Time 31.5 24.5-34.5 SEC Sodium Level 141 136-145 mmol/L Potassium Level 3.5 3.5-5.1 mmol/L Chloride Level 102 98-107 mmol/L Carbon Dioxide Level 23 20-31 mmol/L Anion Gap 16 H 5-15 Blood Urea Nitrogen 26 H 9-23 mg/dL Creatinine 1.59 H 0.550-1.02 mg/dL Glomerular Filtration Rate Calc 33 >90 mL/min BUN/Creatinine Ratio 16.4 10.0-20.0 Serum Glucose 97 74-106 mg/dL Lactic Acid Level 1.7 0.4-2.0 mmol/L Calcium Level 9.7 8.7-10.4 mg/dL Total Bilirubin 0.8 0.2-1.0 mg/dL Aspartate Amino Transferase (AST) 62 H 13-40 U/L Alanine Aminotransferase (ALT) 41 H 7-40 U/L Alkaline Phosphatase 101 46-116 U/L Total Protein 7.6 5.7-8.2 g/dL Albumin 4.1 3.2-4.8 g/dL Urine Color Light-yellow Yellow Urine Clarity Clear Clear Urine pH 6.0 5.0-9.0 Urine Specific [place] 1.012 1.001-1.035 Urine Protein Negative Negative Urine Ketones 1+ H Negative Urine Blood Negative Negative /uL Urine Nitrite Negative Negative Urine Bilirubin Negative Negative Urine Urobilinogen Normal Negative mg/dL Urine Leukocyte Esterase Negative Negative /uL Urine RBC <1 0 - 4 /hpf Urine Microscopic WBC < 1 0-5 /HPF Urine Squamous Epithelial Cells Few <5 /hpf Urine Bacteria Few H None Seen /hpf Urine Mucus Few None Seen Urine Glucose Normal Normal mg/dL Current Medications Medications (Trade) Dose Ordered Sig/Nancy Route Start Time Stop Time Status Last Admin Cefepime HCl 50 ml @ 12.5 mls/hr STAT ONCE IV 07/06/25 14:45 07/06/25 18:44 DC 07/06/25 15:52 Sodium Chloride 1,000 ml @ 1,000 mls/hr Q1H ONCE IV 07/06/25 14:45 07/06/25 15:44 DC 07/06/25 15:41 [facility] [id number] [place] [id number] Ph: [phone] DIAGNOSTIC IMAGING Diagnostic Imaging Report : [id number] Signed PATIENT: JEY COX MACCT: [id number] UNIT: [id number] : 1950 LOC: ER ROOM / BED: / AGE / SEX: 75 / F ADM STATUS: REG ER SERVICE 1442 ORDERING PHYSICIAN: LISANDRA TIM MD PROCEDURE(s): CXRP - CHEST PORTABLE REASON: ams ORDER NUMBER(s): [id number], ACCESSION NUMBER(s): [id number] EXAM: XY CHEST PORTABLE CLINICAL HISTORY: ams TECHNIQUE: Single AP view of the chest WID: COMPARISON: XY CHEST XRAY 1 VIEW on DOS: 06/12/25 FINDINGS: Lines and tubes: None Chest: Mild cardiomegaly. No pulmonary vascular congestion. No pleural effusion, pneumothorax, or consolidation. Limited depth of inspiration. The osseous structures are grossly intact. Degenerative changes of the bilateral acromioclavicular joints. IMPRESSION: 1. Mild cardiomegaly. No CHF or pneumonia. 2. Limited depth of inspiration. ATED BY: IRASEMA DANIELS MD DICTATED DATE/TIME: 07/06/251517 SIGNED BY: IRASEMA DANIELS MD SIGNED DATE/TIME: 07/06/251517 CC: [place] [address] Ph: [phone] DIAGNOSTIC IMAGING Diagnostic Imaging Report : [id number] Signed PATIENT: JEY COX MACCT: [id number] UNIT: [id number] : 1950 LOC: ER ROOM / BED: / AGE / SEX: 75 / F ADM STATUS: REG ER SERVICE 1442 ORDERING PHYSICIAN: LISANDRA TIM MD PROCEDURE(s): HWOCT - HEAD WITHOUT CONTRAST REASON: [facility] ORDER NUMBER(s): [id number], ACCESSION NUMBER(s): [id number] EXAM DESCRIPTION: CT HEAD WITHOUT CONTRAST CLINICAL HISTORY: ams COMPARISON: CT BRAIN on DOS: 06/09/25 TECHNIQUE: Noncontrast CT head was performed. Coronal MPR images were generated. CTDI/ DLP = 56.82 / 1.66. Dose reduction technique with one or more of the following methods was performe d: Automated exposure control, adjustment of the mA and/or kV according to patient size, use of iterative reconstruction [place]. FINDINGS: Slightly limited study due to motion at the apex. No evidence of acute intracranial hemorrhage. No mass effect. No extra-axial collections of fluid or blood. The brain is normal in attenuation. The ventricles and sulci are normal in size for age. Clear basal cisterns. The calvarium is intact. The soft tissues are unremarkable. The paranasal sinuses and mastoid air cells are clear. IMPRESSION: 1. Slightly limited study due to motion. Within the limits there is no acute intracranial abnormality. ATED BY: JESSEE KASPER MD DICTATED DATE/TIME: 07/06/25 1524 SIGNED BY: JESSEE KASPER MD SIGNED DATE/TIME: 07/06/25 1524 CC: Time of 1ST Reevaluation: 15:10 Reevaluation 1ST: Unchanged Patient Education/Counseling: Diagnosis, Treatment Family Education/Counseling: No Family Present SEPSIS Sepsis Screen Physician Orders Chest Portable (07/06/25 14:42) Accucheck (07/06/25 14:42) Blood Culture (07/06/25 14:42) Notify Md If Map <65 Or Bp<90 (07/06/25 14:42) If Map<65 Start Vasopressor (07/06/25 14:42) Sepsis Reassesment After Fluid (07/06/25 15:42) Head Without Contrast (07/06/25 14:42) Straight Cath. (07/06/25 ) Insert Pearson Catheter QSHIFT (07/06/25 18:09) Urine Bacterial Culture (07/06/25 18:09) Vital Signs Date Time Temp Pulse Resp B/P (MAP) Pulse Ox O2 Delivery O2 Flow Rate FiO2 07/06/25 15:11 97.5 78 17 144/62 (89) 96 97.5 07/06/25 14:50 80 07/06/25 14:29 98.7 86 16 133/74 97 98.7 Laboratory Tests Test 07/06/25 15:23 Lactic Acid Level 1.7 mmol/L (0.4-2.0) White Blood Count 5.4 10^3/uL (4.4-10.8) Medications Medications Dose Ordered Sig/Nancy Route Start Time Stop Time Status Last Admin Dose Admin Cefepime HCl 50 ml @ 12.5 mls/hr STAT ONCE IV 07/06/25 14:45 07/06/25 18:44 DC 07/06/25 15:52 Sodium Chloride 1,000 ml @ 1,000 mls/hr Q1H ONCE IV 07/06/25 14:45 07/06/25 15:44 DC 07/06/25 15:41 Departure 1 Departure Time of Disposition: 19:02 (Patient with worsening altered mental status concerning for an metabolic encephalopathy. EKGs CT brain chest x-ray and labs so far benign. We will admit patient for further workup and expert consultation) Impression: Primary Impression: Acute metabolic encephalopathy Additional Impression: Generalized weakness Disposition: ADMITTED INPATIENT Admit to: Med Surg Condition: Serious Critical Care Note Critical Care Time?: No Stability Stability form required: No Heart Score Heart Score: Heart Score Response (Comments) Value History N/A 0 EKG N/A 0 Age N/A 0 Risk Factors N/A 0 Troponin N/A 0 Total 0 I personally scribed for LISANDRA TIM MD ([email or web address]) on 07/06/25 at 14:46. Electronically submitted by Azeb Mary [email or web address]). I personally scribed for LISANDRA TIM MD ([email or web address]) on 07/06/25 at 15:41. Electronically submitted by Azeb Mary ([email or web address]). I personally scribed for LISANDRA TIM MD ([email or web address]) on 07/06/25 at 15:42. Electronically submitted by Azeb Mary ([email or web address]). LISANDRA TIM MD Jul 06, 2025 14:46
[2025-07-06 15:11] VITALS: PULSE 78; RESP 19; O2SAT 95
--- NOTE | 2025-07-06 15:21 | DVH ---
EXAM: XY CHEST PORTABLE CLINICAL HISTORY: ams TECHNIQUE: Single AP view of the chest WID: COMPARISON: XY CHEST XRAY 1 VIEW on DOS: 06/12/25 FINDINGS: Lines and tubes: None Chest: Mild cardiomegaly. No pulmonary vascular congestion. No pleural effusion, pneumothorax, or consolidation. Limited depth of inspiration. The osseous structures are grossly intact. Degenerative changes of the bilateral acromioclavicular greg ints. IMPRESSION: 1. Mild cardiomegaly. No CHF or pneumonia. 2. Limited depth of inspiration.
--- NOTE | 2025-07-06 15:26 | DVH ---
EXAM DESCRIPTION: CT HEAD WITHOUT CONTRAST CLINICAL HISTORY: ams COMPARISON: CT BRAIN on DOS: 06/09/25 TECHNIQUE: Noncontrast CT head was performed. Coronal MPR images were generated. CTDI/ DLP = 56.82 / 1.66. Dose reduction technique with one or more of the following methods was performed: Automated exposure control, adjustment of the mA and/or kV according to patient size, use of iterative reconstruction [place]. FINDINGS: Slightly limited study due to motion at the apex. No evidence of acute intracranial hemorrhage. No mass effect. No extra-axial collections of fluid or blood. The brain is normal in attenuation. The ventricles and sulci are normal in size for age. Clear basal cisterns. The calvarium is intact. The soft tissues are unremarkable. The paranasal sinuses and mastoid air cells are clear. IMPRESSION: 1. Slightly limited study due to motion. Within the limits there is no acute intracranial abnormalit y.
[2025-07-06] MEDS: CEFEPIME 1GM/50ML 50 ML IV ONE (15:39)
[2025-07-06 15:40] LABS: Hematocrit 38.2 % (36.0-46.0); Hemoglobin 12.9 g/dL (12.2-16.2); Mean Corpuscular Hemoglobin 30.5 pg (28.0-32.0); Mean Corpuscular Volume 90.2 fL (80.0-100.0); Nucleated Red Blood Cells % 0.0 %
[2025-07-06] MEDS: SODIUM CHLORIDE 0.9% 1,000 ML IV ONE (15:41)
[2025-07-06 15:57] LABS: Albumin 4.1 g/dL (3.2-4.8); Alkaline Phosphatase 101 U/L (46-116); Anion Gap 16 (5-15); BUN/Creatinine Ratio 16.4 (10.0-20.0); Calcium 9.7 mg/dL (8.7-10.4); Carbon Dioxide 23 mmol/L (20-31); Chloride 102 mmol/L (98-107); Glucose 97 mg/dL (74-106); Sodium 141 mmol/L (136-145); Total Protein 7.6 g/dL (5.7-8.2)
[2025-07-06 15:58] LABS: Bilirubin, Total 0.8 mg/dL (0.2-1.0)
[2025-07-06 16:01] LABS: INR 1.16 (0.9-1.15); Partial Thromboplastin Time 31.5 SEC (24.5-34.5); Prothrombin Time 12.1 sec (9.3-11.8)
[2025-07-06 16:03] LABS: Alanine Aminotransferase 41 U/L (7-40); Blood Urea Nitrogen 26 mg/dL (9-23); Potassium 3.5 mmol/L (3.5-5.1)
[2025-07-06 18:09] LABS: Urine Protein, UAD Negative (Negative)
[2025-07-06 19:42] VITALS: TEMP 97.7
[2025-07-06 20:17] LABS: Free T4 (Free Thyroxine) 2.22 ng/dL (0.89-1.76)
[2025-07-06] MEDS: SODIUM CHLORIDE 0.9% 1,000 ML IV SCH (21:49)
[2025-07-07 04:37] LABS: Hematocrit 33.0 % (36.0-46.0); Hemoglobin 11.4 g/dL (12.2-16.2); Mean Corpuscular Hemoglobin 30.7 pg (28.0-32.0); Mean Corpuscular Volume 88.7 fL (80.0-100.0); Nucleated Red Blood Cells % 0.0 %
[2025-07-07 04:49] LABS: Chloride 105 mmol/L (98-107); Sodium 143 mmol/L (136-145)
[2025-07-07 04:50] LABS: Anion Gap 15 (5-15); Carbon Dioxide 23 mmol/L (20-31); Potassium 3.4 mmol/L (3.5-5.1)
[2025-07-07 04:51] LABS: Calcium 8.8 mg/dL (8.7-10.4)
[2025-07-07 04:55] LABS: BUN/Creatinine Ratio 19.3 (10.0-20.0)
[2025-07-07 04:57] LABS: Blood Urea Nitrogen 26 mg/dL (9-23); Glucose 124 mg/dL (74-106)
--- NOTE | 2025-07-07 09:01 | DVHINCON2 ---
Date Seen: Jul 07, 2025 History of Present Illness Spoke to Dr. Ojeda regarding patient's status as I was called to assess and admit the patient by the ER doctor. Per [facility] Dr. Ojeda patient has a DC order since last night and he will get in touch with rehabilitation case coordinator to get the patient transferred to the assisted facility. Allergies: Coded Allergies: Iodine (Verified Allergy, Unknown, 01/31/11) Penicillins (Verified Allergy, Unknown, 01/31/11) Home Meds Active Scripts Calcium Polycarbophil (Fiber) 625 Mg Tab, 625 MG PO TID for 90 Days, #270 TAB 3 Refills Prov:DENICE MCKEON MD 06/12/25 Prednisone (Prednisone) 10 Mg Tom, 10 MG PO BID for 5 Days, #10 PACK Prov:DENICE MCKEON MD 06/12/25 Albuterol Sulfate (Albuterol Sulfate Hfa) 108 Mcg/Act Aer, 108 MCG IN Q6HP PRN, #1 AER 3 Refills Prov:DENICE MCKEON MD 06/12/25 Ondansetron Odt 4MG Tab (ZOFRAN PO) 4 Mg Tb, 4 MG PO Q6HPRN PRN for 6 Days, #24 TAB ODT TAB-DISSOLVE IN MOUTH, THEN SWALLOW Prov:ALLIE EUBANKS MD 06/03/25 Prednisone (Prednisone) 10 Mg Tab, 10 MG PO DAILY for 5 Days, #5 MG Prov:TOMMY WU MD 05/29/25 Levofloxacin Hemihydrate (LEVOFLOXACIN) 500 Mg Tab, 1 TAB PO DAILY for 7 Days, #7 TAB Prov:TOMMY WU MD 05/29/25 Lactulose (Lactulose) 10 Gm/15 Ml Laura, 10 GM PO BID PRN for 30 Days, #120 ML Prov:BELINDA ZAPATA MD 05/16/25 Levofloxacin Hemihydrate (LEVAQUIN 500 MG) 500 Mg Tab, 1 TAB PO DAILY, #7 TAB Prov:BELINDA ZAPATA MD 05/16/25 Levofloxacin Hemihydrate (LEVOFLOXACIN) 500 Mg Tab, 1 TAB PO DAILY for 7 Days, #7 TAB Prov:TOMMY WU MD 05/12/25 Guaifenesin (Mucinex) 600 Mg Tab, 1 TAB PO BID PRN, #14 TAB Prov:ALEXY LOZANO MD 04/21/25 Reported Medications Atenolol (Tenormin) 50 Mg Tab, DAILY 01/31/11 Levothyroxine Sodium (Synthroid) 125 Mcg Tab 01/31/11 Metformin Hydrochloride (Glucophage) 500 Mg Tab 01/31/11 Benazepril Hcl (Benazepril Hcl) 40 Mg Tab, DAILY 01/31/11 Amlodipine Besylate (Amlodipine Besylate) 10 Mg Tab 01/31/11 Gabapentin (Neurontin) 300 Mg Cap, DAILY 01/31/11 Current Medications Current Medications Medications (Trade) Dose Ordered Sig/Nancy Route PRN Reason Start Time Stop Time Status Last Admin Sodium Chloride 1,000 ml @ 150 mls/hr Q6H40M IV 07/06/25 21:30 07/06/25 21:49 Vital Signs Vital Signs Date Time Temp Pulse Resp B/P (MAP) Pulse Ox O2 Delivery O2 Flow Rate FiO2 07/07/25 06:00 84 18 139/107 (118) 96 07/06/25 19:42 97.7 97.7 07/06/25 19:30 Room Air* 0 21 Labs/Diagnostic Data Labs Test 07/07/25 04:16 07/06/25 15:23 07/06/25 14:42 Range/Units White Blood Count 4.7 4.4-10.8 10^3/uL Red Blood Count 3.72 L 4.0-5.20 10^6/uL Hemoglobin 11.4 L 12.2-16.2 g/dL Hematocrit 33.0 #L 36.0-46.0 % Mean Corpuscular Volume 88.7 80.0-100.0 fL Mean Corpuscular Hemoglobin 30.7 28.0-32.0 pg Mean Corpuscular Hemoglobin Concent 34.6 32.0-36.0 g/dL Red Cell Distribution Width 13.7 11.8-14.3 % Platelet Count 228 140-450 10^3/uL Mean Platelet Volume 8.0 6.9-10.8 fL Neutrophils (%) (Auto) 71.1 37.0-80.0 % Lymphocytes (%) (Auto) 11.9 10.0-50.0 % Monocytes (%) (Auto) 14.3 H 0.0-12.0 % Eosinophils (%) (Auto) 1.8 0.0-7.0 % Basophils (%) (Auto) 0.9 0.0-2.0 % Neutrophils # (Auto) 3.3 1.6-8.6 10 ^3/uL Lymphocytes # (Auto) 0.6 0.4-5.4 10 ^3/uL Monocytes # (Auto) 0.7 0-1.3 10 ^3/uL Eosinophils # (Auto) 0.1 0-0.8 10 ^3/uL Basophils # (Auto) 0 0-0.2 10 ^3/uL Nucleated Red Blood Cells 0.0 % Sodium Level 143 136-145 mmol/L Potassium Level 3.4 L 3.5-5.1 mmol/L Chloride Level 105 98-107 mmol/L Carbon Dioxide Level 23 20-31 mmol/L Anion Gap 15 5-15 Blood Urea Nitrogen 26 H 9-23 mg/dL Creatinine 1.35 H 0.550-1.02 mg/dL Glomerular Filtration Rate Calc 41 >90 mL/min BUN/Creatinine Ratio 19.3 10.0-20.0 Serum Glucose 124 H 74-106 mg/dL Calcium Level 8.8 8.7-10.4 mg/dL Prothrombin Time 12.1 H 9.3-11.8 sec Prothrombin Time INR 1.16 H 0.9-1.15 Activated Partial Thromboplast Time 31.5 24.5-34.5 SEC Lactic Acid Level 1.7 0.4-2.0 mmol/L Total Bilirubin 0.8 0.2-1.0 mg/dL Aspartate Amino Transferase (AST) 62 H 13-40 U/L Alanine Aminotransferase (ALT) 41 H 7-40 U/L Alkaline Phosphatase 101 46-116 U/L Total Protein 7.6 5.7-8.2 g/dL Albumin 4.1 3.2-4.8 g/dL Thyroid Stimulating Hormone (TSH) 0.71 0.55-4.78 uIU/mL Free Thyroxine (T4) Calculated 2.22 H 0.89-1.76 ng/dL Total Triiodothyronine (TT3) 0.88 0.60-1.81 ng/mL Urine Color Light-yellow Yellow Urine Clarity Clear Clear Urine pH 6.0 5.0-9.0 Urine Specific [place] 1.012 1.001-1.035 Urine Protein Negative Negative Urine Ketones 1+ H Negative Urine Blood Negative Negative /uL Urine Nitrite Negative Negative Urine Bilirubin Negative Negative Urine Urobilinogen Normal Negative mg/dL Urine Leukocyte Esterase Negative Negative /uL Urine RBC <1 0 - 4 /hpf Urine Microscopic WBC < 1 0-5 /HPF Urine Squamous Epithelial Cells Few <5 /hpf Urine Bacteria Few H None Seen /hpf Urine Mucus Few None Seen Urine Glucose Normal Normal mg/dL Microbiology Date/Time Source Procedure Growth Status 07/06/25 15:23 Blood Blood Culture - Preliminary Resulted Assessment Assessment Generalized weakness History of COPD History of hypertension History of kidney disease History of diabetes type 2 History of Thyroid disease Plan Antiemetics Pain management Per [facility] transferred to assisted facility Per [facility] they will take care of the patient Plan discussed with: Patient Date of Service: Jul 07, 2025 Billing Provider: KATIE MARRERO Common Visit Codes: [id number] INP/OBS CARE (HIGH) Secondary Visit Codes: [id number] COUNSELING IND KATIE MARRERO Jul 07, 2025 09:01
[2025-07-07] MEDS ORDERED: LEVO500T91 PO (09:17)
[2025-07-07] MEDS: VANCOMYCIN 1.5GM/250ML 250 ML IV ONE (09:52)
[2025-07-07 10:29] VITALS: BP 155/49; PULSE 78; RESP 14; O2SAT 96
--- NOTE | 2025-07-08 18:12 | DVHINCON2 ---
DATE OF CONSULTATION: 07/06/2025 CHIEF COMPLAINT: Coming in for generalized weakness. HISTORY OF PRESENT ILLNESS: This is a 75-year-old female with significant past medical history for COPD, diabetes mellitus type 2, essential hypertension, and hypothyroidism, who presents with a new onset of generalized weakness. The patient apparently was ambulating in the past week. Over the last 24-48 hours, the patient apparently became more weak. The patient is currently alert to self, time, place, and situation. The patient denies any chest pain or shortness of breath, any cough, any phlegm, any urinary frequency, urgency, burning sensation, abdominal pain, nausea, or vomiting symptoms. The patient does not seem to be confused; however, when spoken to, she seems to ramble up on different topics, but is easily reoriented to self, time, place, and situation, and is able to respond to all questions appropriately. The patient says that she lives in her own home with her son, who is majorly her print inspector at home. PAST MEDICAL HISTORY: COPD, hypertension, hypothyroidism, diabetes mellitus type 2. PAST SURGICAL HISTORY: 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, . SOCIAL HISTORY: No tobacco, no alcohol, no illicit drugs. MEDICATIONS AT HOME: Per medical reconciliation. MEDICATION ALLERGIES: No known drug allergies. REVIEW OF SYSTEMS: A 10-point review of systems was covered with the patient and was negative with exception to what was present in history of present illness. PHYSICAL EXAMINATION: VITAL SIGNS: Temp 98.7, pulse rate 82, respiratory rate of 14, blood pressure 155/49, pulse ox about 96% on room air. GENERAL: Seems to be alert and oriented to self, time, and place. Not in acute distress female, lying in bed. HEENT: Normocephalic, atraumatic. Extraocular muscles are intact. Pupils are equally round and reactive to light and accommodation. Mucous membranes look slightly dry. CARDIOVASCULAR: S1 and S2 positive. Regular rate and rhythm. No rubs, gallops, or murmurs. LUNGS: Clear to auscultation bilaterally. No wheezes, rhonchi or rales. ABDOMEN: Seems to be soft, nontender, and nontender. Positive bowel sounds. No guarding or rebound. EXTREMITIES: Without any lower extremity edema, clubbing, or cyanosis. ____. SKIN: The patient has increased skin turgor pressure. NEUROLOGIC: Cranial nerve testing 2-12 overall seems to be intact. LABORATORY WORKUP: Shows a white count of 5.4, H and H of 12.9 and 38.2, platelet count of 207,000. INR of 1.16. Sodium 141, potassium 3.5, chloride 102, carbon dioxide of 23, anion gap of 16, BUN of 26, creatinine 1.59, glucose of 97. Lactic acid 1.7, AST 62, ALT of 41, alkaline phos of 101. TSH of 0.71, free T4 of 2.22 and total T3 of 0.88. Urinalysis was negative for nitrites, negative for leukocyte esterase, and less than 1 wbc. Blood cultures and urine cultures were sent out. Blood cultures after 48 hours without any growth. IMAGING: Chest x-ray, mild cardiomegaly, no CHF or pneumonia, and limited depth of inspiration. Head CT, no acute intracranial pathology. DIAGNOSES: * Generalized weakness. * Urinary tract infection. PLAN: The patient was kept in the Emergency Room. A full assessment was completed with the patient and the patient was found to have generalized weakness with difficulty with ambulation. The patient did have a full laboratory workup with no leukocytosis and has been afebrile. The patient does seem to have some underlying CKD, but did improve with IV hydration overnight with creatinine down trending from 1.59 to 1.35. The patient received a dose of cefepime in the Emergency Room for a possibility of underlying infection. The patient's urine cultures did come back with 100,000 colony-forming units of Lactobacillus species. The patient has been arranged to stay in the ER and to be transferred to a rehab facility in the morning for rehabilitation given her generalized weakness. Orders will be given after the fact to the rehab facility to initiate the patient on Rocephin 1 g IV daily for underlying urinary tract infection. The patient otherwise, from my perspective, appears to be discharged to the rehab facility. The patient is to resume all home medications, which have been outlined in her discharge orders. The patient is to return to the Emergency Room in case of any fevers, chills, chest pain, shortness of breath, nausea, vomiting, or any other concerning signs and/or symptoms. The patient's bed arrangement for rehab facility will be accomplished by [facility] Case Management. Cristiano Pantoja MD LM/JORGE/DAVE TID: [id number] RECEIPT: [id number]
== END 2025-07-07 12:42 ==
LOC: ER 14:29 → EDBD 14:29 → ER 07-07 12:42
DX: G93.41 Metabolic encephalopathy (principal); R53.1 Weakness; F10.90 Alcohol use, unspecified, uncomplicated; E11.29 Type 2 diabetes mellitus with other diabetic kidney complication; N28.9 Disorder of kidney and ureter, unspecified; I10 Essential (primary) hypertension; J44.9 Chronic obstructive pulmonary disease, unspecified; Z87.891 Personal history of nicotine dependence; Z90.49 Acquired absence of other specified parts of digestive tract; Z88.0 Allergy status to penicillin; Z88.8 Allergy status to other drugs, medicaments and biological substances; Z79.52 Long term (current) use of systemic steroids; Z79.899 Other long term (current) drug therapy; Z46.6 Encounter for fitting and adjustment of urinary device; Y90.9 Presence of alcohol in blood, level not specified
CPT/HCPCS: 36415; 70450; 71045; 80048; 80053; 81001; 83605; 84439; 84443; 84480; 85025; 85610; 85730; 87040; 87077; 87086; 87186; 96365; 96366; 96367; 99285; J0692; J3374; J7030